=== PATIENT | female | born 1990 | race Two or more races ===

== ENCOUNTER 2018-03-16 20:23 | Inpatient (IN) | payer MEDICAID ==
[2018-03-16] MEDS ORDERED: Acetaminophen 325 MG Tab PO PRN (20:37)
[2018-03-16] MEDS ORDERED: oxyCODONE 5 MG Tab PO PRN (20:38)
[2018-03-16] MEDS ORDERED: Temazepam 15 MG Cap PO PRN (20:38)
[2018-03-16] MEDS: Nicotine 14 MG/24 Hr Patch TRDERM SCH (21:39)
--- NOTE | 2018-03-17 07:43 | PCM.HP ---
H&P History of Present Illness - General Date of Service: 03/17/18 Admit Problem/Dx: Admission Diagnosis/Problem Admission Diagnosis/Problem Anemia due to blood loss Source of Information: Patient, EMS Notes Reviewed History Limitations: Reports: No Limitations - History of Present Illness Initial Comments - Free Text/Narative: The patient is a 27-year-old lady who had presented to [facility] with a complaint of dizziness, lightheadedness and near-syncope. The patient had been admitted to acute hospitalization in December 2017 secondary to profound anemia. The patient was accepted directly from the clinic to hospitalization as she had a hemoglobin at that side of 3.3 g/dL. The patient's hematocrit was at 12.6%. All of the patient's other RBC indices were also low. The patient does have a history of iron deficiency anemia as well as menometrorrhagia and has said that she has been having bright red rectal bleeding for 3 days. She says that she hasn't been taking her medication for at least a month which had included ferrous sulfate and levothyroxin. The patient has had no other complaints at this time. She has denied any pain. No nausea or vomiting. No diarrhea. Onset of Symptoms: Reports: Gradual Duration of Symptoms: Reports: Week(s):, Chronic, Getting Worse Improves with: Reports: None Worsens with: Reports: None Associated Symptoms: Reports: Loss of Appetite - Related Data Allergies/Adverse Reactions: Allergies Allergy/AdvReac Type Severity Reaction Status Date / Time No Known Allergies Allergy Verified 01/03/18 19:22 Home Medications: Home Meds Ferrous Sulfate 325 mg PO TID #90 tablet 01/06/18 [Rx] Cholecalciferol (Vitamin D3) [Vitamin D] 50,000 unit PO ASDIRECTED 03/17/18 [ History] Cyanocobalamin (Vitamin B-12) [B-12] 1,000 mcg PO DAILY 03/17/18 [History] Levothyroxine 25 mcg PO ACBREAKFAST 03/17/18 [History] Past Medical History HEENT History: Reports: None Cardiovascular History: Reports: None Respiratory History: Reports: None Gastrointestinal History: Reports: None Genitourinary History: Reports: None 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: Other OB/BYN History: emergency c section on 2nd Musculoskeletal History: Reports: None Neurological History: Reports: None Psychiatric History: Reports: None Endocrine/Metabolic History: Reports: None Hematologic History: Reports: Anemia, Iron Deficiency Other Hematologic History: anemia 2nd to miscarriage Immunologic History: Reports: None Oncologic (Cancer) History: Reports: None Dermatologic History: Reports: None - Infectious Disease History Infectious Disease History: Reports: None - Past Surgical History Head Surgeries/Procedures: Reports: None Cardiovascular Surgical History: Reports: None Respiratory Surgical History: Reports: None GI Surgical History: Reports: None Female Surgical History: Reports: Section Neurological Surgical History: Reports: None Musculoskeletal Surgical History: Reports: None Dermatological Surgical History: Reports: None Social & Family History - Family History Family Medical History: Noncontributory - Tobacco Use Smoking Status *Q: Current Every Day Smoker Years of Tobacco use: 10 Packs/Tins Daily: 5 Used Tobacco, but Quit: No Second Hand Smoke Exposure: Yes - Caffeine Use Caffeine Use: Reports: None - Alcohol Use Days Per Week of Alcohol Use: 1 Number of Drinks Per Day: 6 Total Drinks Per Week: 6 - Recreational Drug Use Recreational Drug Use: No - Living Situation & Occupation Living situation: Reports: Single, with Family Occupation: Unemployed H&P Review of Systems - Review of Systems: Review Of Systems: See Below General: Reports: Malaise, Weakness, Fatigue HEENT: Reports: No Symptoms Pulmonary: Reports: No Symptoms Cardiovascular: Reports: Palpitations, Lightheadedness Gastrointestinal: Reports: Bloody Stool, Hematochezia Genitourinary: Reports: Abnormal Menses Musculoskeletal: Reports: No Symptoms Skin: Reports: Pallor Psychiatric: Reports: No Symptoms Neurological: Reports: No Symptoms Hematologic/Lymphatic: Reports: Anemia Immunologic: Reports: No Symptoms Exam - Exam Exam: See Below - Vital Signs Vital Signs: Last Vital Signs Temp 36.6 C 03/17/18 07:30 Pulse 88 03/17/18 07:30 Resp 16 03/17/18 07:30 BP 115/68 03/17/18 07:30 Pulse Ox 99 03/17/18 07:30 Weight: 66.587 kg - Exam Quality Assessment: Supplemental Oxygen General: Alert, Oriented, Cooperative HEENT: EACs Clear, EOMI, Hearing Intact, Pupils Equal, Pupils Reactive. No: Conjunctiva Clear (Pale), Mucosa Moist & [place] (Dry with oral pallor) Neck: Supple, Trachea Midline Lungs: Clear to Auscultation, Normal Respiratory Effort Cardiovascular: Regular Rhythm, Tachycardia GI/Abdominal Exam: Normal Bowel Sounds, Soft, Non-Tender, No Distention (Female) Exam: Deferred Rectal (Female) Exam: Deferred Back Exam: Normal Inspection, Full Range of Motion Extremities: Normal Inspection, No Pedal Edema Skin: Dry, Intact, Cool Neurological: Cranial Nerves Intact Neuro Extensive - Mental Status: Alert, Oriented x3 Neuro Extensive - Motor, Sensory, Reflexes: CN II-XII Intact Psychiatric: Alert, Normal Affect, Normal Mood - Patient Data Lab Results Last 24 hrs: Laboratory Results - last 24 hr 03/16/18 Range/Units 20:47 Blood Type O POSITIVE Antibody Screen NEGATIVE Crossmatch See Detail Result Diagrams: 03/17/18 08:45 03/17/18 08:45 - Problem List (1) Chronic blood loss anemia SNOMED Code(s): 988350824 ICD Code: D50.0 - IRON DEFICIENCY ANEMIA SECONDARY TO BLOOD LOSS (CHRONIC) Status: Chronic Priority: High Current Visit: Yes Problem Details: Profound, initial hemoglobin 3.3 g/dL (2) Menometrorrhagia SNOMED Code(s): 826380559 ICD Code: N92.1 - EXCESSIVE AND FREQUENT MENSTRUATION WITH IRREGULAR CYCLE Status: Acute Priority: High Current Visit: Yes (3) Hypothyroid SNOMED Code(s): 15168373 ICD Code: E03.9 - HYPOTHYROIDISM, UNSPECIFIED Status: Chronic Priority: High Current Visit: Yes Qualifiers: Hypothyroidism type: acquired Qualified Code(s): E03.9 - Hypothyroidism, unspecified (4) Non compliance w medication regimen SNOMED Code(s): 704303733 ICD Code: Z91.14 - PATIENT'S OTHER NONCOMPLIANCE WITH MEDICATION REGIMEN Status: Chronic Priority: High Current Visit: Yes (5) GI bleeding SNOMED Code(s): 10728786 ICD Code: K92.2 - GASTROINTESTINAL HEMORRHAGE, UNSPECIFIED Status: Acute Priority: High Current Visit: Yes Qualifiers: GI bleed type/associated pathology: anorectal hemorrhage Qualified Code(s) : K62.5 - Hemorrhage of anus and rectum Problem List Initiated/Reviewed/Updated: Yes Orders Last 24hrs: Active Orders 24 hr Category Date Time Status Admission Status [Patient Status] [ADT] Routine ADT 03/16/18 20:31 Active Oxygen Therapy Adult [Oxygen Therapy] [RC] ASDIRECTED Care 03/16/18 20:40 Active Telemetry Monitoring [Cardiac Monitoring] [RC] Q8H Care 03/16/18 20:34 Active Verify Patient Consent Obtain [RC] ASDIRECTED Care 03/16/18 20:30 Active Vital Signs [RC] Q4H Care 03/16/18 20:35 Active Regular Diet [DIET] Diet 03/17/18 Breakfast Active CBC WITH AUTO DIFF [HEME] AM Lab 03/17/18 05:11 Ordered CMP [COMPREHENSIVE METABOLIC PN,CMP] [CHEM] AM Lab 03/17/18 05:11 Ordered RED BLOOD CELLS LP [BBK] Routine Lab 03/16/18 20:47 Results TSH [CHEM] AM Lab 03/17/18 05:11 Ordered TYPE AND SCREEN [BBK] Routine Lab 03/16/18 20:47 Results Acetaminophen [Tylenol] Med 03/16/18 20:37 Active 650 mg PO Q6H PRN Nicotine [Habitrol] Med 03/16/18 20:45 Active 14 mg TRDERM DAILY Temazepam [Restoril] Med 03/16/18 20:38 Active 15 mg PO BEDTIME PRN oxyCODONE Med 03/16/18 20:38 Active 5 mg PO Q4H PRN Transfuse Red Blood Cells [COMM] Routine Oth 03/16/18 20:28 Ordered Medication Orders Acetaminophen (Tylenol) 650 mg PO Q6H PRN PRN Reason: Pain Nicotine (Habitrol) 14 mg TRDERM DAILY JAZMINE Last Admin: 03/16/18 21:39 Dose: 14 mg Oxycodone HCl (Oxycodone) 5 mg PO Q4H PRN PRN Reason: moderate pain Temazepam (Restoril) 15 mg PO BEDTIME PRN PRN Reason: Sleep Assessment/Plan Comment:: The patient is a 27-year-old lady who has a history of noncompliance with her medications. This is a second time within the past 3 months that she has been hospitalized for profound anemia. Her hemoglobin upon presentation for outside source was at 3.3 g/dL. 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 I have reviewed all the presenting documentation. The patient has also been at this time transfuse with 3 units of packed red blood cells and her hemoglobin has improved to 7.8 g/dL. She has 2 more units of packed red blood cells currently pending. Because of the patient's rather profound anemia and her noncompliance I've also ordered due to transfusion of 200 mg of iron sucrose. The patient will need to have close follow-up with her primary care physician. She has been encouraged to ambulate. Also I have consulted surgeon with regards to her report of bloody red rectal bleeding although previously she did not have any evidence of this. The patient should be appropriate for discharge in 1-2 days.
[2018-03-17] MEDS ORDERED: Ondansetron 4 MG Tab.DIS PO PRN (08:49)
[2018-03-17] MEDS ORDERED: Docusate Sodium 100 MG Cap PO PRN (08:49)
[2018-03-17] MEDS ORDERED: Cholecalciferol (Vitamin D3) [Vitamin D3] 50,000 UNIT PO SCH (09:00)
[2018-03-17] MEDS: Cyanocobalamin (Vitamin B12) 500 MCG Tab PO SCH (09:09)
[2018-03-17] MEDS: Nicotine 14 MG/24 Hr Patch TRDERM SCH (09:09)
[2018-03-17 09:25] LABS: CHLORIDE,CL 106 mmol/L (98-107); SODIUM,NA 138 mmol/L (136-145)
--- NOTE | 2018-03-17 15:45 | PCM.CONS ---
H&P History of Present Illness - General Date of Service: 03/17/18 Admit Problem/Dx: Admission Diagnosis/Problem Admission Diagnosis/Problem Anemia due to blood loss Source of Information: Patient History Limitations: Reports: No Limitations - History of Present Illness Initial Comments - Free Text/Narative: Patient is a 27 year old female who presents with severe anemia. She was seen last fall with the same issue. Her FOBT was negative. She failed to follow up with me or a director veterinary afterwards. She is currently on her menses and started feeling weak and dizzy. She presented to an OSH with a hgb of 3 again. She was transfered here. Overnight she received 4 units of blood and her hemoglobin syd appropriately. She is currently getting more blood. She denies any hematochezia or melena. She states that her periods are very heavy. She has been on BC before but it has failed to stop her periods. - Related Data Allergies/Adverse Reactions: Allergies Allergy/AdvReac Type Severity Reaction Status Date / Time No Known Allergies Allergy Verified 01/03/18 19:22 Home Medications: Home Meds Ferrous Sulfate 325 mg PO TID #90 tablet 01/06/18 [Rx] Cholecalciferol (Vitamin D3) [Vitamin D] 50,000 unit PO ASDIRECTED 03/17/18 [ History] Cyanocobalamin (Vitamin B-12) [B-12] 1,000 mcg PO DAILY 03/17/18 [History] Levothyroxine 25 mcg PO ACBREAKFAST 03/17/18 [History] Past Medical History HEENT History: Reports: None Cardiovascular History: Reports: None Respiratory History: Reports: None Gastrointestinal History: Reports: None Genitourinary History: Reports: None 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 OB/BYN History: emergency c section on 2nd Musculoskeletal History: Reports: None Neurological History: Reports: None Psychiatric History: Reports: None Endocrine/Metabolic History: Reports: None Hematologic History: Reports: Anemia, Iron Deficiency Other Hematologic History: anemia 2nd to miscarriage Immunologic History: Reports: None Oncologic (Cancer) History: Reports: None Dermatologic History: Reports: None - Infectious Disease History Infectious Disease History: Reports: None - Past Surgical History Head Surgeries/Procedures: Reports: None Cardiovascular Surgical History: Reports: None Respiratory Surgical History: Reports: None GI Surgical History: Reports: None Female Surgical History: Reports: Section Neurological Surgical History: Reports: None Musculoskeletal Surgical History: Reports: None Dermatological Surgical History: Reports: None Social & Family History - Family History Family Medical History: Noncontributory - Tobacco Use Smoking Status *Q: Current Every Day Smoker Years of Tobacco use: 10 Packs/Tins Daily: 5 Used Tobacco, but Quit: No Second Hand Smoke Exposure: Yes - Caffeine Use Caffeine Use: Reports: None - Alcohol Use Days Per Week of Alcohol Use: 1 Number of Drinks Per Day: 6 Total Drinks Per Week: 6 - Recreational Drug Use Recreational Drug Use: No - Living Situation & Occupation Living situation: Reports: Single, with Family Occupation: Unemployed H&P Review of Systems - Review of Systems: Review Of Systems: ROS reveals no pertinent complaints other than HPI. Exam - Exam Exam: See Below - Vital Signs Vital Signs: Last Vital Signs Temp 36.5 C 03/17/18 14:39 Pulse 84 03/17/18 14:39 Resp 16 03/17/18 14:39 BP 110/63 03/17/18 14:39 Pulse Ox 99 03/17/18 14:39 Weight: 66.587 kg - Exam General: Alert, Oriented HEENT: Conjunctiva Clear, Mucosa Moist & [place] Lungs: Clear to Auscultation, Normal Respiratory Effort Cardiovascular: Regular Rate, Regular Rhythm GI/Abdominal Exam: Soft, Non-Tender, No Distention, No Mass Rectal (Female) Exam: Normal Exam, Normal Rectal Tone, Heme - Stool Back Exam: Normal Inspection, Full Range of Motion Extremities: Normal Inspection, Normal Range of Motion - Patient Data Lab Results Last 24 hrs: Laboratory Results - last 24 hr 03/16/18 03/17/18 03/17/18 Range/Units 20:47 08:45 08:45 WBC 8.06 (4.0-11.0) K/uL RBC 3.23 L (4.30-5.90) M/uL Hgb 7.8 L (12.0-16.0) g/dL Hct 24.7 L (36.0-46.0) % MCV 76.5 L (80.0-98.0) fL MCH 24.1 L (27.0-32.0) pg MCHC 31.6 (31.0-37.0) g/dL RDW Std Deviation 52.6 (28.0-62.0) fl RDW Coeff of Aniyah 19 H (11.0-15.0) % Plt Count 239 (150-400) K/uL MPV 9.50 (7.40-12.00) fL Neut % (Auto) 77.2 (48.0-80.0) % Lymph % (Auto) 10.4 L (16.0-40.0) % Rich % (Auto) 7.1 (0.0-15.0) % Eos % (Auto) 5.2 (0.0-7.0) % Baso % (Auto) 0.1 (0.0-1.5) % Neut # (Auto) 6.2 H (1.4-5.7) K/uL Lymph # (Auto) 0.8 (0.6-2.4) K/uL Rich # (Auto) 0.6 (0.0-0.8) K/uL Eos # (Auto) 0.4 (0.0-0.7) K/uL Baso # (Auto) 0.0 (0.0-0.1) K/uL Nucleated RBC % 1.0 /100WBC Nucleated RBCs # 0 K/uL Sodium 138 (136-145) mmol/L Potassium 3.3 L (3.5-5.1) mmol/L Chloride 106 (98-107) mmol/L Carbon Dioxide 22.3 (21.0-32.0) mmol/L BUN 7 (7.0-18.0) mg/dL Creatinine 0.5 L (0.6-1.0) mg/dL Est Cr Clr Drug Dosing 148.53 mL/min Estimated GFR (MDRD) > 60.0 ml/min Glucose 95 (74-106) mg/dL Calcium 8.6 (8.5-10.1) mg/dL Total Bilirubin 4.1 H (0.2-1.0) mg/dL AST 38 H (15-37) IU/L ALT 48 (14-63) IU/L Alkaline Phosphatase 104 (46-116) U/L Total Protein 6.7 (6.4-8.2) g/dL Albumin 3.2 L (3.4-5.0) g/dL Globulin 3.5 (2.6-4.0) g/dL Albumin/Globulin Ratio 0.9 (0.9-1.6) TSH 3rd Generation 2.43 (0.36-3.74) uIU/mL Blood Type O POSITIVE Antibody Screen NEGATIVE Crossmatch See Detail Result Diagrams: 03/17/18 08:45 03/17/18 08:45 Consult PN Assessment/Plan (1) Menometrorrhagia SNOMED Code(s): 035971626 Code(s): N92.1 - EXCESSIVE AND FREQUENT MENSTRUATION WITH IRREGULAR CYCLE Priority: High Current Visit: Yes (2) Chronic blood loss anemia SNOMED Code(s): 853272951 Code(s): D50.0 - IRON DEFICIENCY ANEMIA SECONDARY TO BLOOD LOSS (CHRONIC) Priority: High Current Visit: Yes Comment: Profound, initial hemoglobin 3.3 g/dL Problem List Initiated/Reviewed/Updated: Yes Plan: The patient's story sounds consistent with a gynecologic issue as the cause of her anemia and less likely from a GI bleed. If her FOBT is negative then she should follow up with a director veterinary for management first. If her FOBT comes back positive will consider a scope for her while she is inpatient since she has failed to follow up in the past.
[2018-03-18] MEDS ORDERED: Levothyroxine 25 MCG Tab PO SCH (07:30)
[2018-03-18] MEDS: Nicotine 14 MG/24 Hr Patch TRDERM SCH (08:57)
[2018-03-18] MEDS: Cyanocobalamin (Vitamin B12) 500 MCG Tab PO SCH (08:59)
[2018-03-18] MEDS ORDERED: Cholecalciferol (Vitamin D3) [Vitamin D3] 50,000 UNIT PO SCH (09:15)
--- NOTE | 2018-03-18 12:14 | PCM.DCSUM1 ---
Discharge Summary - Hospital Course Brief History: The patient is a 27-year-old lady who had presented to [facility] with a complaint of dizziness, lightheadedness and near-syncope. The patient had been admitted to acute hospitalization in December 2017 secondary to profound anemia. The patient was accepted directly from the clinic to hospitalization as she had a hemoglobin at that side of 3.3 g /dL. The patient's hematocrit was at 12.6%. All of the patient's other RBC indices were also low. The patient does have a history of iron deficiency anemia as well as menometrorrhagia and has said that she has been having bright red rectal bleeding for 3 days. She says that she hasn't been taking her medication for at least a month which had included ferrous sulfate and levothyroxine. The patient has had no other complaints at this time. She has denied any pain. No nausea or vomiting. No diarrhea. Diagnosis: Stroke: No - Discharge Data Discharge Date: 03/18/18 Discharge Disposition: Home, Self-Care 01 Condition: Good - Patient Instructions Diet: Regular Diet as Tolerated Activity: As Tolerated Showering/Bathing: May Shower Notify Provider of: Fever, Increased Pain, Swelling and Redness, Drainage, Nausea and/or Vomiting - Discharge Plan *PRESCRIPTION DRUG MONITORING PROGRAM REVIEWED*: Not Applicable *COPY OF PRESCRIPTION DRUG MONITORING REPORT IN PATIENT [place]IDIA: Not Applicable Prescriptions/Med Rec: Iron Ps Cmplx/Vit B12/Fa [Poly-Iron 150 Forte] 1 each PO BID #60 capsule Home Medications: Home Meds Cholecalciferol (Vitamin D3) [Vitamin D3] 50,000 unit PO ASDIRECTED 03/17/18 [ History] Cyanocobalamin (Vitamin B-12) [B-12] 1,000 mcg PO DAILY 03/17/18 [History] Levothyroxine 25 mcg PO ACBREAKFAST 03/17/18 [History] Iron Ps Cmplx/Vit B12/Fa [Poly-Iron 150 Forte] 1 each PO BID #60 capsule [Rx] Oxygen Therapy Mode: Room Air Patient Handouts: Polysaccharide-Iron Complex tablets or capsules, Gastrointestinal Bleeding, [id number] Referrals: Caio Cochran MD [Physician] - 03/27/18 10:45 am Gita Falcon MD [Physician] - 03/27/18 1:30 pm - Discharge Summary/Plan Comment DC Time >30 min.: No Discharge Summary/Plan Comment: Discharge Diagnoses: Anemia requiring transfusing Menorrhagia Hypothyroidism Non compliance with medical regimen [place] was admitted and transfused with total of 5 units PRBCs. FOBT was collected and revealed positive. Dr Falcon, General surgery, consulted due to this. Please see her report. She offered patient endoscopy and she declined would like to obtain this as outpatient. 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 He recommended follow up as outpatient and to also see Hematology for work up for bleeding disorders as well. She reports she was on Depo shot, which worked for a short period of time, then she started bleeding more and soaks 1 pad in 1-2 hours. She will be encouraged to continue Iron supplementation, which she reports she stopped taking 1 month ago. She is encouraged to follow up as scheduled so she can e further evaluated. She will have follow up arranged with Dr Falcon, Dr Cochran and Hematology. She is to return to the ED or clinic if concerns should arise. - General Info Date of Service: 03/18/18 Admission Dx/Problem (Free Text: Admission Diagnosis/Problem Admission Diagnosis/Problem Anemia due to blood loss Subjective Update: Reports she is feeling much better today. No lightheadedness or dizziness. No pain. Menses have stopped. No further rectal bleeding. Functional Status: Reports: Pain Controlled, Tolerating Diet, Ambulating, Urinating - Review of Systems General: Reports: No Symptoms. Denies: Weakness, Fatigue, Malaise HEENT: Reports: No Symptoms. Denies: Headaches, Sore Throat, Visual Changes Pulmonary: Reports: No Symptoms. Denies: Shortness of Breath Cardiovascular: Reports: No Symptoms. Denies: Chest Pain, Palpitations Gastrointestinal: Reports: No Symptoms. Denies: Abdominal Pain, Nausea, Vomiting Genitourinary: Reports: No Symptoms. Denies: Dysuria, Frequency, Burning Musculoskeletal: Reports: No Symptoms Skin: Reports: No Symptoms Neurological: Reports: No Symptoms Psychiatric: Reports: No Symptoms - Patient Data Vitals - Most Recent: Last Vital Signs Temp 96.5 F 03/18/18 12:00 Pulse 81 03/18/18 12:00 Resp 16 03/18/18 12:00 BP 124/69 03/18/18 12:00 Pulse Ox 99 03/18/18 12:00 Weight - Most Recent: 66.587 kg I&O - Last 24 hours: Intake & Output 03/17/18 03/18/18 03/18/18 22:59 06:59 14:59 Intake Total 1296 240 Output Total 350 650 Balance 946 -410 Lab Results - Last 24 hrs: Laboratory Results - last 24 hr 03/16/18 03/17/18 03/18/18 Range/Units 20:47 20:38 06:10 WBC 8.91 (4.0-11.0) K/uL RBC 4.02 L (4.30-5.90) M/uL Hgb 9.5 L 10.4 L (12.0-16.0) g/dL Hct 29.2 L 31.9 L (36.0-46.0) % MCV 79.4 L (80.0-98.0) fL MCH 25.9 L (27.0-32.0) pg MCHC 32.6 (31.0-37.0) g/dL RDW Std Deviation 49.0 (28.0-62.0) fl RDW Coeff of Aniyah 18 H (11.0-15.0) % Plt Count 247 (150-400) K/uL MPV 10.80 (7.40-12.00) fL Neut % (Auto) 70.1 (48.0-80.0) % Lymph % (Auto) 16.6 (16.0-40.0) % [place] % (Auto) 7.6 (0.0-15.0) % Eos % (Auto) 5.5 (0.0-7.0) % Baso % (Auto) 0.2 (0.0-1.5) % Neut # (Auto) 6.2 H (1.4-5.7) K/uL Lymph # (Auto) 1.5 (0.6-2.4) K/uL [place] # (Auto) 0.7 (0.0-0.8) K/uL Eos # (Auto) 0.5 (0.0-0.7) K/uL Baso # (Auto) 0.0 (0.0-0.1) K/uL Blood Type O POSITIVE Antibody Screen NEGATIVE Crossmatch See Detail [facility]AS[facility] Results - Last 24 hrs: Microbiology 03/17/18 15:30 Stool Occult Blood (CEASAR) - Final Stool / Feces POSITIVE OCCULT BLOOD Med Orders - Current: Current Medications Acetaminophen (Tylenol) 650 mg PO Q6H PRN PRN Reason: Pain Cyanocobalamin (Vitamin B12) 1,000 mcg PO DAILY [facility] Last Admin: 03/18/18 08:59 Dose: 1,000 mcg Docusate Sodium (Colace) 100 mg PO BID PRN PRN Reason: Constipation Levothyroxine Sodium (Levothyroxine) 25 mcg PO ACBREAKFAST [facility] Last Admin: 03/18/18 06:40 Dose: 25 mcg Nicotine (Habitrol) 14 mg TRDERM DAILY [facility] Last Admin: 03/18/18 08:57 Dose: Not Given Ondansetron HCl (Zofran Odt) 4 mg PO Q4H PRN PRN Reason: nausea, able to take PO Oxycodone HCl (Oxycodone) 5 mg PO Q4H PRN PRN Reason: moderate pain Cholecalciferol ( Vitamin D3) [Vitamin D3] 50,000 Unit 50,000 each PO MoWeFr [facility] Last Admin: 03/18/18 08:58 Dose: Not Given Temazepam (Restoril) 15 mg PO BEDTIME PRN PRN Reason: Sleep Discontinued Medications Cholecalciferol ( Vitamin D3) [Vitamin D3] 50,000 Unit 50,000 each PO ASDIRECTED [facility] - Exam General: Reports: Alert, Oriented, Cooperative, No Acute Distress Lungs: Reports: Clear to Auscultation, Normal Respiratory Effort Cardiovascular: Reports: Regular Rate, Regular Rhythm GI/Abdominal Exam: Normal Bowel Sounds, Soft, Non-Tender Extremities: Normal Inspection, Normal Range of Motion, Non-Tender Neurological: Reports: No New Focal Deficit Psy/Mental Status: Reports: Alert, Normal Affect, Normal Mood *Q Meaningful Use (DIS) - VTE *Q VTE Mechanical Contraindications *Q: At Risk for Falls VTE Pharmacological Contraindications *Q: Patient has Severe Anemia
--- NOTE | 2018-03-19 15:15 | PCM.SN ---
- Free Text/Narrative Note: I saw this patient on Sunday03/18/18. Given her positive FOBT, I recommended a diagnostic EGD and colonoscopy. The patient declined and states that she wants to do one as an outpatient. She understands that we do not have an exact source of her bleed and this could help up determine where it is coming from. She still declined. She will follow up in my clinic in 1-2 weeks to schedule these procedures as an outpatient.
== END 2018-03-18 14:20 | disposition home or self-care (01) | DRG 379 ==
LOC: MW.MS 20:23
PROVIDERS: ADMIT Internal Medicine; ATTEND Internal Medicine
PROC: 30233N1 Transfusion of Nonautologous Red Blood Cells into Peripheral Vein, Percutaneous Approach (ICD-10-PCS; principal; 2018-03-16)
DX: K62.5 Hemorrhage of anus and rectum (principal); T45.4X6A Underdosing of iron and its compounds, initial encounter; T38.1X6A Underdosing of thyroid hormones and substitutes, initial encounter; Z91.128 Patient's intentional underdosing of medication regimen for other reason; N92.1 Excessive and frequent menstruation with irregular cycle; D50.0 Iron deficiency anemia secondary to blood loss (chronic); Z98.891 History of uterine scar from previous surgery; F17.210 Nicotine dependence, cigarettes, uncomplicated; E03.9 Hypothyroidism, unspecified
CPT/HCPCS: 36415; 36430; 80053; 82272; 84443; 85014; 85018; 85025; 86850; 86900; 86901; 86920; 86921; 86922; A9270-GY; P9016

== ENCOUNTER 2018-09-06 22:36 | Emergency (ER) | payer MEDICAID ==
[2018-09-06] MEDS ORDERED: Sodium Chloride 0.9% 1,000 ML IV ONE (22:42)
--- NOTE | 2018-09-06 22:42 | EDM.PDOC ---
ED HPI GENERAL MEDICAL PROBLEM - General Stated Complaint: PT HAS LOW BLOOD Time Seen by Provider: 09/06/18 22:39 Source of Information: Reports: Patient History Limitations: Reports: No Limitations - History of Present Illness INITIAL COMMENTS - FREE TEXT/NARRATIVE: HISTORY AND PHYSICAL: History of present illness: Patient is a 28-year-old female who presents to the emergency room with complaints of headache, dizziness and bloody stools. Patient has a long- standing history of anemia which has required blood transfusions. States her anemia started last year secondary to a miscarriage. Since then she has been admitted several times this past year for blood transfusions and unspecified GI bleed. Patient reports she has not found a cause behind why she continues to have anemia and bloody stools. States that she had an IUD placed a few months ago to help decrease frequency of her menstrual periods, but over the past one month she has had light spotting at least daily. She continues to have blood in her stools which she describes as bright in color. Believes somebody told her it was due to hemorrhoids but she is unconvinced that her GI bleed has been properly addressed. Patient denies any fever, chills, change in vision, syncope or near syncope. Denies any chest pain, back pain, shortness of breath or cough. Denies any abdominal pain, nausea, vomiting, diarrhea, constipation or dysuria. Patient has been eating and drinking appropriately. Past medical history of iron deficiency anemia, GI bleed, hypothyroidism Review of systems: As per history of present illness and below otherwise all systems reviewed and negative. Past medical history: As per history of present illness and as reviewed below otherwise noncontributory. Surgical history: As per history of present illness and as reviewed below otherwise noncontributory. Social history: See social history for further information Family history: As per history of present illness and as reviewed below otherwise noncontributory. Physical exam: General: Well-developed and well-nourished 28-year-old female. Alert and oriented. HEENT: Atraumatic, normocephalic, pupils equal and reactive bilaterally, bilateral conjunctival pallor, negative scleral icterus, mucous membranes moist , trachea midline. No drooling or trismus noted. No meningeal signs. No hot potato voice noted. Lungs: Clear to auscultation, breath sounds equal bilaterally, chest nontender. Heart: S1S2, regular rate and rhythm without overt murmur Abdomen: Soft, nondistended, nontender. Negative for masses. Negative for costovertebral tenderness. Pelvis: Stable nontender. Rectal: No obvious external or internal hemorrhoids are noted. Positive Hemoccult stool, yanet blood noted mixed in stool. Good rectal tone Skin: Profoundly pale, intact, warm, dry. No lesions or rashes noted. Extremities: Atraumatic, moves all extremities per self without difficulty or deficits. Neurovascular unremarkable. Neuro: Awake, alert, oriented. Cranial nerves II through XII unremarkable. Cerebellum unremarkable. Motor and sensory unremarkable throughout. Exam nonfocal. Notes: Dr. Rankin, general surgeon in class special education teacher was involved in this case. He is aware of the patient needs for further care and management and is agreeable to plan of care. Patient is going to require blood products and admission for continued monitoring. Her facility is currently on diversion and does not have any beds available. Patient is aware of this. We'll have to transfer her to [facility]. Dr. Oakley at [facility] in [place] was consulted, he is agreeable to accepting this patient. She'll be transferred via [facility] flight crew. Diagnostics: CBC, CMP, EKG, Orthostatic Vital Signs, UA, HCGU Therapeutics: IV fluids, 2 units PRBCs, Fresh Frozen Plasma Impression: Symptomatic Anemia Menometrorrhagia GI bleed Plan: Transfer to [facility] to Dr Oakley Definitive disposition and diagnosis as appropriate pending reevaluation and review of above. Duration: Week(s):, Chronic (Acute on Chronic ) head Pain Score (Numeric/FACES): 8 - Related Data Allergies Allergy/AdvReac Type Severity Reaction Status Date / Time No Known Allergies Allergy Verified 09/06/18 22:46 Home Meds: Home Meds . 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 TALENT ACQUISITION ASSISTANT History: emergency c section on 2nd Musculoskeletal History: Reports: None Neurological History: Reports: None Psychiatric History: Reports: None Endocrine/Metabolic History: Reports: None Hematologic History: Reports: Anemia, Iron Deficiency Other Hematologic History: anemia 2nd to miscarriage Immunologic History: Reports: None Oncologic (Cancer) History: Reports: None Dermatologic History: Reports: None - Infectious Disease History Infectious Disease History: Reports: None - Past Surgical History Head Surgeries/Procedures: Reports: None Cardiovascular Surgical History: Reports: None Respiratory Surgical History: Reports: None GI Surgical History: Reports: None Female Surgical History: Reports: Section Neurological Surgical History: Reports: None Musculoskeletal Surgical History: Reports: None Dermatological Surgical History: Reports: None Social & Family History - Family History Family Medical History: Noncontributory - Caffeine Use Caffeine Use: Reports: None - Living Situation & Occupation Living situation: Reports: Single, with Family Occupation: Unemployed ED ROS GENERAL - Review of Systems Review Of Systems: ROS reveals no pertinent complaints other than HPI. ED EXAM, GENERAL - Physical Exam Exam: See Below (See dictation) Course - Vital Signs Last Recorded V/S: Last Vital Signs Temp 97.1 F 09/06/18 22:36 Pulse 124 H 09/06/18 22:36 Resp 18 09/06/18 22:36 BP 129/52 L 09/06/18 22:36 Pulse Ox 96 09/06/18 22:36 - Orders/Labs/Meds Orders: Active Orders 24 hr Category Date Time Status EKG Documentation Completion [RC] STAT Care 09/06/18 22:42 Active Orthostatic Vital Signs [RC] ASDIRECTED Care 09/06/18 22:42 Active COMPREHENSIVE METABOLIC PN,CMP [CHEM] Stat Lab 09/06/18 22:50 Received FRESH FROZEN PLASMA [BBK] Stat Lab 09/06/18 23:17 Ordered HCG QUALITATIVE,URINE [URCHEM] Stat Lab 09/06/18 22:42 Ordered INR,PT,PROTHROMBIN TIME [COAG] Stat Lab 09/06/18 23:09 Ordered PTT,PARTIAL THROMBOPLSTIN TIME [COAG] Routine Lab 09/06/18 23:17 Ordered RED BLOOD CELLS LP [BBK] Stat Lab 09/06/18 23:01 Ordered TYPE AND SCREEN [BBK] Stat Lab 09/06/18 22:50 Received UA RFX CEASAR AND CULT IF INDIC [URIN] Stat Lab 09/06/18 22:42 Ordered Sodium Chloride 0.9% [Normal Saline] 1,000 ml Med 09/06/18 22:42 Active IV STAT Transfuse Red Blood Cells [COMM] Stat Oth 09/06/18 23:01 Ordered Medication Orders Sodium Chloride (Normal Saline) 1,000 mls @ 999 mls/hr IV STAT ONE Stop: 09/06/18 23:42 Labs: Laboratory Tests 09/06/18 Range/Units 22:50 WBC 6.74 (4.0-11.0) K/uL RBC 1.75 L (4.30-5.90) M/uL Hgb 2.7 L* (12.0-16.0) g/dL Hct 11.5 L (36.0-46.0) % MCV 65.7 L (80.0-98.0) fL MCH 15.4 L (27.0-32.0) pg MCHC 23.5 L (31.0-37.0) g/dL RDW Std Deviation 49.9 (28.0-62.0) fl RDW Coeff of Aniyah 21 H (11.0-15.0) % Plt Count 354 (150-400) K/uL MPV 9.00 (7.40-12.00) fL Neut % (Auto) 66.6 (48.0-80.0) % Lymph % (Auto) 23.7 (16.0-40.0) % [place] % (Auto) 6.5 (0.0-15.0) % Eos % (Auto) 2.8 (0.0-7.0) % Baso % (Auto) 0.4 (0.0-1.5) % Neut # (Auto) 4.5 (1.4-5.7) K/uL Lymph # (Auto) 1.6 (0.6-2.4) K/uL [place] # (Auto) 0.4 (0.0-0.8) K/uL Eos # (Auto) 0.2 (0.0-0.7) K/uL Baso # (Auto) 0.0 (0.0-0.1) K/uL Nucleated RBC % 1.6 /100WBC Nucleated RBCs # 0 K/uL Meds: Medications Generic Name Dose Route Start Last Admin Trade Name Freq PRN Reason Stop Dose Admin Sodium Chloride 1,000 mls @ 999 mls/hr 09/06/18 22:42 Normal Saline IV 09/06/18 23:42 STAT ONE Discontinued Medications Generic Name Dose Route Start Last Admin Trade Name Freq PRN Reason Stop Dose Admin Ketorolac Tromethamine 30 mg 09/06/18 22:47 Toradol IVPUSH 09/06/18 22:48 ONETIME ONE Departure - Departure Time of Disposition: 23:21 Disposition: DC/Tfer to Acute Hospital 02 Clinical Impression: Menometrorrhagia Anemia Qualifiers: Anemia type: unspecified type Qualified Code(s): D64.9 - Anemia, unspecified GI bleeding Qualifiers: GI bleed type/associated pathology: anorectal hemorrhage Qualified Code(s): K62.5 - Hemorrhage of anus and rectum - Discharge Information Referrals: PCP,None [Primary Care Provider] - - My Orders Last 24 Hours: My Active Orders 09/06/18 22:42 EKG Documentation Completion [RC] STAT Orthostatic Vital Signs [RC] ASDIRECTED HCG QUALITATIVE,URINE [URCHEM] Stat UA RFX CEASAR AND CULT IF INDIC [URIN] Stat Sodium Chloride 0.9% [Normal Saline] 1,000 ml IV STAT 09/06/18 22:50 COMPREHENSIVE METABOLIC PN,CMP [CHEM] Stat TYPE AND SCREEN [BBK] Stat 09/06/18 23:01 RED BLOOD CELLS LP [BBK] Stat Transfuse Red Blood Cells [COMM] Stat 09/06/18 23:09 INR,PT,PROTHROMBIN TIME [COAG] Stat 09/06/18 23:17 FRESH FROZEN PLASMA [BBK] Stat PTT,PARTIAL THROMBOPLSTIN TIME [COAG] Routine - Assessment/Plan Last 24 Hours: My Active Orders 09/06/18 22:42 EKG Documentation Completion [RC] STAT Orthostatic Vital Signs [RC] ASDIRECTED HCG QUALITATIVE,URINE [URCHEM] Stat UA RFX CEASAR AND CULT IF INDIC [URIN] Stat Sodium Chloride 0.9% [Normal Saline] 1,000 ml IV STAT 09/06/18 22:50 COMPREHENSIVE METABOLIC PN,CMP [CHEM] Stat TYPE AND SCREEN [BBK] Stat 09/06/18 23:01 RED BLOOD CELLS LP [BBK] Stat Transfuse Red Blood Cells [COMM] Stat 09/06/18 23:09 INR,PT,PROTHROMBIN TIME [COAG] Stat 09/06/18 23:17 FRESH FROZEN PLASMA [BBK] Stat PTT,PARTIAL THROMBOPLSTIN TIME [COAG] Routine
[2018-09-06] MEDS ORDERED: Ketorolac 30 MG/ML SDV IVPUSH ONE (22:47)
[2018-09-06 23:23] LABS: BLOOD UREA NITROGEN,BUN 8 mg/dL (7.0-18.0); CARBON DIOXIDE,CO2 20.2 mmol/L (21.0-32.0); CHLORIDE,CL 106 mmol/L (98-107); GLUCOSE RANDOM 131 mg/dL (74-106); POTASSIUM,K 3.4 mmol/L (3.5-5.1); SODIUM,NA 140 mmol/L (136-145)
== END 2018-09-07 00:15 ==
LOC: MW.ED 22:36
DX: N92.1 Excessive and frequent menstruation with irregular cycle (principal); K62.5 Hemorrhage of anus and rectum; D64.9 Anemia, unspecified
CPT/HCPCS: 36415; 36430; 80053; 85025; 85610; 85730; 86850; 86900; 86901; 86920; 86921; 86922; 93005; 96360; 99285; J7040; P9016; P9017; 99284

== ENCOUNTER 2019-01-20 21:14 | Inpatient (IN) | payer MEDICAID ==
[2019-01-20] MEDS ORDERED: Sodium Chloride 0.9% 2.5 ML Syringe FLUSH PRN (21:30)
[2019-01-20] MEDS ORDERED: Sodium Chloride 0.9% 10 ML Syringe FLUSH PRN (21:30)
[2019-01-20] MEDS ORDERED: Ondansetron 4 MG/2 ML SDV IVPUSH ONE (21:35)
[2019-01-20] MEDS ORDERED: Ketorolac 30 MG/ML SDV IVPUSH ONE (21:35)
[2019-01-20] MEDS ORDERED: Sodium Chloride 0.9% 1,000 ML IV ONE ×2 (21:35→22:25)
--- NOTE | 2019-01-20 21:38 | EDM.PDOC ---
<Petra Marinelli - Last Filed: 01/20/19 21:56> ED HPI GENERAL MEDICAL PROBLEM - General Chief Complaint: Genitourinary Problem Stated Complaint: LOWER BACK PAIN AND HURTS WHEN URINATE Time Seen by Provider: 01/20/19 21:23 Source of Information: Reports: Patient History Limitations: Reports: No Limitations - History of Present Illness INITIAL COMMENTS - FREE TEXT/NARRATIVE: HISTORY AND PHYSICAL: History of present illness: Patient is a 28-year-old female who presents to the ED today with concern of right-sided flank pain and burning with urination since yesterday. Patient states she also started feeling feverish and cold last night. Patient states she has not taken anything for her symptoms. Patient states she has a history of anemia but denies any other health history. Patient denies any other symptoms or concerns. Patient denies chest pain, shortness of breath, or cough. Denies headache, neck stiff ness, change in vision, syncope, or near syncope. Denies nausea, vomiting , diarrhea, constipation, or dysuria. Has not noted any blood in urine or stool. Patient has been eating and drinking appropriately. Review of systems: As per history of present illness and below otherwise all systems reviewed and negative. Past medical history: As per history of present illness and as reviewed below otherwise noncontributory. Surgical history: As per history of present illness and as reviewed below otherwise noncontributory. Social history: See social history for further information Family history: As per history of present illness and as reviewed below otherwise noncontributory. Physical exam: General: Patient is alert, oriented, and in no acute distress. Patient laying comfortably on exam table but shivering. HEENT: Atraumatic, normocephalic, pupils equal and reactive bilaterally, negative for conjunctival pallor or scleral icterus, mucous membranes moist, TMs normal bilaterally, throat clear, neck supple, nontender, trachea midline. No drooling or trismus noted. No meningeal signs. No hot potato voice noted. Lungs: Clear to auscultation, breath sounds equal bilaterally, chest nontender. Heart: S1S2, regular rate and rhythm without overt murmur Abdomen: Soft, nondistended, nontender. Negative for masses or hepatosplenomegaly. Positive for costovertebral tenderness of the right. Pelvis: Stable nontender. Genitourinary: Deferred. Rectal: Deferred. Skin: Intact, warm, dry. No lesions or rashes noted. Extremities: Atraumatic, negative for cords or calf pain. Neurovascular unremarkable. Neuro: Awake, alert, oriented. Cranial nerves II through XII unremarkable. Cerebellum unremarkable. Motor and sensory unremarkable throughout. Exam nonfocal. Notes: Dr. Montgomery has assumed care of patient and will follow remaining diagnostics and disposition for patient. Diagnostics: CBC, CMP, UA, urine culture, urine hCG, lipase, lactate, blood cultures x2, influenza Therapeutics: Saline, Toradol, Zofran, Rocephin Prescription: Impression: Urinary Tract Infection Plan: Definitive disposition and diagnosis as appropriate pending reevaluation and review of above. right flank Pain Score (Numeric/FACES): 8 - Related Data Allergies Allergy/AdvReac Type Severity Reaction Status Date / Time No Known Allergies Allergy Verified 01/20/19 21:27 Home Meds: Home Meds . 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 PONY ROLL FINISHER History: emergency c section on 2nd Musculoskeletal History: Reports: None Neurological History: Reports: None Psychiatric History: Reports: None Endocrine/Metabolic History: Reports: None Hematologic History: Reports: Anemia, Iron Deficiency Other Hematologic History: anemia 2nd to miscarriage Immunologic History: Reports: None Oncologic (Cancer) History: Reports: None Dermatologic History: Reports: None - Infectious Disease History Infectious Disease History: Reports: None - Past Surgical History Head Surgeries/Procedures: Reports: None Cardiovascular Surgical History: Reports: None Respiratory Surgical History: Reports: None GI Surgical History: Reports: None Female Surgical History: Reports: Section Neurological Surgical History: Reports: None Musculoskeletal Surgical History: Reports: None Dermatological Surgical History: Reports: None Social & Family History - Family History Family Medical History: Noncontributory - Tobacco Use Smoking Status *Q: Current Every Day Smoker Years of Tobacco use: 16 Packs/Tins Daily: 1 - Caffeine Use Caffeine Use: Reports: None - Recreational Drug Use Recreational Drug Use: No - Living Situation & Occupation Living situation: Reports: Single, with Family Occupation: Unemployed ED ROS GENERAL - Review of Systems Review Of Systems: Comprehensive ROS is negative, except as noted in HPI. ED EXAM, GENERAL - Physical Exam Exam: See Below (see dictation) Course - Vital Signs Last Recorded V/S: Last Vital Signs Temp 38.6 C H 01/20/19 22:24 Pulse 104 H 01/20/19 22:24 Resp 22 H 01/20/19 22:24 BP 123/72 01/20/19 21:15 Pulse Ox 99 01/20/19 22:24 - Orders/Labs/Meds Orders: Active Orders 24 hr Category Date Time Status Patient Status [ADT] Stat ADT 01/20/19 22:26 Ordered CULTURE BLOOD [BC] Stat Lab 01/20/19 21:31 Ordered CULTURE BLOOD [BC] Stat Lab 01/20/19 21:34 Received CULTURE URINE [RM] Stat Lab 01/20/19 21:21 Received TYPE AND SCREEN [BBK] Stat Lab 01/20/19 22:02 Ordered Sodium Chloride 0.9% [Normal Saline] 1,000 ml Med 01/20/19 21:35 Active IV STAT Sodium Chloride 0.9% [Normal Saline] 1,000 ml Med 01/20/19 22:25 Ordered IV STAT Sodium Chloride 0.9% [Saline Flush] Med 01/20/19 21:30 Active 10 ml FLUSH ASDIRECTED PRN Sodium Chloride 0.9% [Saline Flush] Med 01/20/19 21:30 Active 2.5 ml FLUSH ASDIRECTED PRN Blood Culture x2 Reflex Set [OM.PC] Stat Oth 01/20/19 21:31 Ordered Saline Lock Insert [OM.PC] Stat Oth 01/20/19 21:30 Ordered Transfuse PRBC [Transfuse Red Blood Cells] [COMM] Stat Oth 01/20/19 22:25 Ordered Medication Orders Sodium Chloride (Normal Saline) 1,000 mls @ 999 mls/hr IV STAT ONE Stop: 01/20/19 22:35 Last Admin: 01/20/19 21:38 Dose: 999 mls/hr Sodium Chloride (Normal Saline) 1,000 mls @ 999 mls/hr IV STAT ONE Stop: 01/20/19 23:25 Sodium Chloride (Saline Flush) 10 ml FLUSH ASDIRECTED PRN PRN Reason: Keep Vein Open Last Admin: 01/20/19 21:39 Dose: 10 ml Sodium Chloride (Saline Flush) 2.5 ml FLUSH ASDIRECTED PRN PRN Reason: Keep Vein Open Last Admin: 01/20/19 21:40 Dose: 2.5 ml Labs: Laboratory Tests 01/20/19 01/20/19 01/20/19 Range/Units 21:21 21:21 21:35 WBC 11.76 H (4.0-11.0) K/uL RBC 3.98 L (4.30-5.90) M/uL Hgb 6.7 L (12.0-16.0) g/dL Hct 25.4 L (36.0-46.0) % MCV 63.8 L (80.0-98.0) fL MCH 16.8 L (27.0-32.0) pg MCHC 26.4 L (31.0-37.0) g/dL RDW Std Deviation 48.3 (28.0-62.0) fl RDW Coeff of Aniyah 21 H (11.0-15.0) % Plt Count 213 (150-400) K/uL Neut % (Auto) 83.6 H (48.0-80.0) % Lymph % (Auto) 7.1 L (16.0-40.0) % [place] % (Auto) 8.9 (0.0-15.0) % Eos % (Auto) 0.2 (0.0-7.0) % Baso % (Auto) 0.2 (0.0-1.5) % Neut # (Auto) 9.8 H (1.4-5.7) K/uL Lymph # (Auto) 0.8 (0.6-2.4) K/uL [place] # (Auto) 1.1 H (0.0-0.8) K/uL Eos # (Auto) 0.0 (0.0-0.7) K/uL Baso # (Auto) 0.0 (0.0-0.1) K/uL Nucleated RBC % 0.5 /100WBC Nucleated RBCs # 0 K/uL Lactate (0.20-2.00) mmol/L Sodium (136-145) mmol/L Potassium (3.5-5.1) mmol/L Chloride (98-107) mmol/L Carbon Dioxide (21.0-32.0) mmol/L BUN (7.0-18.0) mg/dL Creatinine (0.6-1.0) mg/dL Est Cr Clr Drug Dosing Estimated GFR (MDRD) ml/min Glucose (74-106) mg/dL Calcium (8.5-10.1) mg/dL Total Bilirubin (0.2-1.0) mg/dL AST (15-37) IU/L ALT (14-63) IU/L Alkaline Phosphatase (46-116) U/L Total Protein (6.4-8.2) g/dL Albumin (3.4-5.0) g/dL Globulin (2.6-4.0) g/dL Albumin/Globulin Ratio (0.9-1.6) Lipase (73-393) U/L Urine Color YELLOW Urine Appearance CLOUDY Urine pH 6.0 (5.0-8.0) Ur Specific [place] 1.025 (1.001-1.035) Urine Protein >=300 H (NEGATIVE) mg/dL Urine Glucose (UA) NEGATIVE (NEGATIVE) mg/dL Urine Ketones TRACE H (NEGATIVE) mg/dL Urine Occult Blood SMALL H (NEGATIVE) Urine Nitrite POSITIVE H (NEGATIVE) Urine Bilirubin SMALL H (NEGATIVE) Urine Ictotest POSITIVE Urine Urobilinogen 2.0 H (<2.0) EU/dL Ur Leukocyte Esterase SMALL H (NEGATIVE) Urine RBC 0-1 (0-2/HPF) Urine WBC 28-32 (0-5/HPF) Ur Epithelial Cells FEW (NONE-FEW) Urine Bacteria 2+ H (NEGATIVE) Urine Mucus LIGHT (NONE-MOD) Urine HCG, Qual NEGATIVE (NEGATIVE) 01/20/19 01/20/19 Range/Units 21:35 21:35 WBC (4.0-11.0) K/uL RBC (4.30-5.90) M/uL Hgb (12.0-16.0) g/dL Hct (36.0-46.0) % MCV (80.0-98.0) fL MCH (27.0-32.0) pg MCHC (31.0-37.0) g/dL RDW Std Deviation (28.0-62.0) fl RDW Coeff of Aniyah (11.0-15.0) % Plt Count (150-400) K/uL Neut % (Auto) (48.0-80.0) % Lymph % (Auto) (16.0-40.0) % [place] % (Auto) (0.0-15.0) % Eos % (Auto) (0.0-7.0) % Baso % (Auto) (0.0-1.5) % Neut # (Auto) (1.4-5.7) K/uL Lymph # (Auto) (0.6-2.4) K/uL [place] # (Auto) (0.0-0.8) K/uL Eos # (Auto) (0.0-0.7) K/uL Baso # (Auto) (0.0-0.1) K/uL Nucleated RBC % /100WBC Nucleated RBCs # K/uL Lactate 2.3 H* (0.20-2.00) mmol/L Sodium 135 L (136-145) mmol/L Potassium 3.3 L (3.5-5.1) mmol/L Chloride 100 (98-107) mmol/L Carbon Dioxide 20.6 L (21.0-32.0) mmol/L BUN 7 (7.0-18.0) mg/dL Creatinine 0.8 (0.6-1.0) mg/dL Est Cr Clr Drug Dosing TNP Estimated GFR (MDRD) > 60.0 ml/min Glucose 121 H (74-106) mg/dL Calcium 8.1 L (8.5-10.1) mg/dL Total Bilirubin 1.9 H (0.2-1.0) mg/dL AST 65 H (15-37) IU/L ALT 60 (14-63) IU/L Alkaline Phosphatase 160 H (46-116) U/L Total Protein 8.3 H (6.4-8.2) g/dL Albumin 3.6 (3.4-5.0) g/dL Globulin 4.7 H (2.6-4.0) g/dL Albumin/Globulin Ratio 0.8 L (0.9-1.6) Lipase 85 (73-393) U/L Urine Color Urine Appearance Urine pH (5.0-8.0) Ur Specific [place] (1.001-1.035) Urine Protein (NEGATIVE) mg/dL Urine Glucose (UA) (NEGATIVE) mg/dL Urine Ketones (NEGATIVE) mg/dL Urine Occult Blood (NEGATIVE) Urine Nitrite (NEGATIVE) Urine Bilirubin (NEGATIVE) Urine Ictotest Urine Urobilinogen (<2.0) EU/dL Ur Leukocyte Esterase (NEGATIVE) Urine RBC (0-2/HPF) Urine WBC (0-5/HPF) Ur Epithelial Cells (NONE-FEW) Urine Bacteria (NEGATIVE) Urine Mucus (NONE-MOD) Urine HCG, Qual (NEGATIVE) Meds: Medications Generic Name Dose Route Start Last Admin Trade Name Melissa PRN Reason Stop Dose Admin Sodium Chloride 1,000 mls @ 999 mls/hr 01/20/19 21:35 01/20/19 21:38 Normal Saline IV 01/20/19 22:35 999 mls/hr STAT ONE Administration Sodium Chloride 1,000 mls @ 999 mls/hr 01/20/19 22:25 Normal Saline IV 01/20/19 23:25 STAT ONE Sodium Chloride 10 ml 01/20/19 21:30 01/20/19 21:39 Saline Flush FLUSH 10 ml ASDIRECTED PRN Administration Keep Vein Open Sodium Chloride 2.5 ml 01/20/19 21:30 01/20/19 21:40 Saline Flush FLUSH 2.5 ml ASDIRECTED PRN Administration Keep Vein Open Discontinued Medications Generic Name Dose Route Start Last Admin Trade Name Melissa PRN Reason Stop Dose Admin Acetaminophen 1,000 mg 01/20/19 22:25 Tylenol Extra Strength PO 01/20/19 22:26 ONETIME ONE Ceftriaxone Sodium/Dextrose 1 50 mls @ 100 mls/hr 01/20/19 21:45 gm/ Premix IV 01/20/19 22:14 ONETIME ONE Ketorolac Tromethamine 30 mg 01/20/19 21:35 01/20/19 21:44 Toradol IVPUSH 01/20/19 21:36 30 mg ONETIME ONE Administration Ondansetron HCl 4 mg 01/20/19 21:35 01/20/19 21:38 Zofran IVPUSH 01/20/19 21:36 4 mg ONETIME ONE Administration Departure - Departure Disposition: Refer to Observation Clinical Impression: Pyelonephritis Anemia Qualifiers: Anemia type: unspecified type Qualified Code(s): D64.9 - Anemia, unspecified - Discharge Information Referrals: PCP,None [Primary Care Provider] - Forms: ED Department Discharge Sepsis Event Note - Evaluation Sepsis Screening Result: Possible Sepsis Risk - Focused Exam Vital Signs: Vital Signs Temp Pulse Resp BP Pulse Ox 01/20/19 22:24 38.6 C H 104 H 22 H 99 01/20/19 21:41 104 H 24 H 98 01/20/19 21:15 39.4 C H 119 H 18 123/72 98 Date Exam was Performed: 01/20/19 Time Exam was Performed: 21:56 - My Orders Last 24 Hours: My Active Orders 01/20/19 22:02 TYPE AND SCREEN [BBK] Stat 01/20/19 22:25 Sodium Chloride 0.9% [Normal Saline] 1,000 ml IV STAT Transfuse PRBC [Transfuse Red Blood Cells] [COMM] Stat 01/20/19 22:26 Patient Status [ADT] Stat - Assessment/Plan Last 24 Hours: My Active Orders 01/20/19 22:02 TYPE AND SCREEN [BBK] Stat 01/20/19 22:25 Sodium Chloride 0.9% [Normal Saline] 1,000 ml IV STAT Transfuse PRBC [Transfuse Red Blood Cells] [COMM] Stat 01/20/19 22:26 Patient Status [ADT] Stat <Evelyn Montgomery - Last Filed: 01/20/19 22:29> ED HPI GENERAL MEDICAL PROBLEM - History of Present Illness INITIAL COMMENTS - FREE TEXT/NARRATIVE: This is Dr. Montgomery dictating addendum note as I have assumed care of this case at 10 PM. I have reviewed all the labs and discussed them with the patient and mother at bedside. The patient is aware that she does have a pyelonephritis and is still tachycardic and febrile currently. I will give her another liter of IV fluids and and I will as she is still febrile. 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 She has an IUD in place and has not had a period in 2 months and she denies any bleeding from her gums or nose no blood in her stools or black stools and no urinary hematuria. I discussed this case with our hospitalist Dr. Alvarez at 22 :22 PM and she agrees with transfusion of 1 unit of blood and admission to observation. She is aware of the history. The patient says that she is currently feeling much better and is having much less pain after the Toradol. Blood and urine cultures have been sent and I am currently ordering the repeat IV fluid bolus and Tylenol. Please change impression above to pyelonephritis, acute on chronic anemia ED ROS GENERAL - Review of Systems Review Of Systems: Comprehensive ROS is negative, except as noted in HPI. Departure - Departure Time of Disposition: 22:29 Condition: Good Sepsis Event Note - Focused Exam Date Exam was Performed: 01/20/19 Time Exam was Performed: 22:27
[2019-01-20] MEDS ORDERED: cefTRIAXone 1 GM in Premix Bag 1 BAG IV ONE (21:45)
[2019-01-20 22:08] LABS: BLOOD UREA NITROGEN,BUN 7 mg/dL (7.0-18.0); CARBON DIOXIDE,CO2 20.6 mmol/L (21.0-32.0); CHLORIDE,CL 100 mmol/L (98-107); GLUCOSE RANDOM 121 mg/dL (74-106); LIPASE 85 U/L (73-393); POTASSIUM,K 3.3 mmol/L (3.5-5.1); SODIUM,NA 135 mmol/L (136-145)
[2019-01-20] MEDS ORDERED: Acetaminophen 500 MG Tab PO ONE (22:25)
[2019-01-20] MEDS ORDERED: Acetaminophen 325 MG Tab PO PRN (23:21)
[2019-01-20] MEDS ORDERED: Albuterol/Ipratropium 3.0-0.5 MG/3 ML Neb Soln NEB PRN (23:21)
[2019-01-20] MEDS ORDERED: Ondansetron 4 MG/2 ML SDV IVPUSH PRN (23:21)
[2019-01-20] MEDS ORDERED: Morphine 10 MG/ML Syringe IVPUSH PRN (23:21)
[2019-01-20] MEDS ORDERED: Sodium Chloride 0.9% 1,000 ML IV SCH (23:30)
[2019-01-20] MEDS ORDERED: Potassium Chloride 20 MEQ Tab.ER PO ONE (23:35)
[2019-01-21] MEDS: Ibuprofen 400 MG Tab PO PRN ×2 (03:56→19:05)
[2019-01-21 07:15] LABS: BLOOD UREA NITROGEN,BUN 7 mg/dL (7.0-18.0); CARBON DIOXIDE,CO2 21.2 mmol/L (21.0-32.0); CHLORIDE,CL 104 mmol/L (98-107); GLUCOSE RANDOM 108 mg/dL (74-106); POTASSIUM,K 3.7 mmol/L (3.5-5.1); SODIUM,NA 136 mmol/L (136-145)
[2019-01-21] MEDS ORDERED: Morphine 2 MG/ML Syringe IVPUSH PRN (07:19)
[2019-01-21] MEDS ORDERED: Iron Sucrose Complex 500 MG in Sodium Chloride 0.9% 250 ML IV ONE (08:02)
--- NOTE | 2019-01-21 08:11 | PCM.HP.2 ---
H&P History of Present Illness - General Date of Service: 01/21/19 Admit Problem/Dx: Admission Diagnosis/Problem Admission Diagnosis/Problem Pyelonephritis Source of Information: Patient History Limitations: Reports: No Limitations - History of Present Illness Initial Comments - Free Text/Narative: This 27 year old female with pmh oa severe anemia secondary to menorrhagia with poor compliance with follow up presented to the ED with concerns of R sided back pain and burning with urination for 1 day. She reports this is accompanied by fevers and chills. She denies history of kidney stones. No recent cough or URI symptoms. No neck pain. She denies taking anything for the pain or fevers. She reports she has not been taking her iron as prescribed due to it causing constipation. In the ED leukocytosis noted at 11,760, hgb 6.7, hct 25.4, lactic acid 2.3, Na 135, K 3.3 Iron 18 TIBC 475, bilirubin elevated at 1.9, AST 65 and ALT 60. UA revealed +2 bacteria with positive nitrite and leukocyte esterase along with small blood. BC and UC obtained. Regarding anemia she reports she was worked up for this in [place] with EGD/ colonoscopy and SOAKER in September 2018 when she was transferred from our facility to [place] for hgb of 2.7. She had EGD which was normal and bleeding was thought to be from metromenorrhagia IUD was placed in [facility] this spring and remains in place. She reports she has not has a period in 2 months now. But again remains non complaint with Iron supplementation. right flank Pain Score (Numeric/FACES): 8 - Related Data Allergies/Adverse Reactions: Allergies Allergy/AdvReac Type Severity Reaction Status Date / Time No Known Allergies Allergy Verified 01/21/19 06:16 Home Medications: Home Meds . [No Known Home Meds] 09/06/18 [History] Past Medical History HEENT History: Reports: None Cardiovascular History: Reports: None Respiratory History: Reports: None Gastrointestinal History: Reports: None Genitourinary History: Reports: None, Other (See Below) Other Genitourinary History: current pyelonephritis SOAKER History: Reports: Other OB/BYN History: emergency c section on 2nd Musculoskeletal History: Reports: None Neurological History: Reports: None Psychiatric History: Reports: None Endocrine/Metabolic History: Reports: None Hematologic History: Reports: Anemia, Iron Deficiency Other Hematologic History: anemia 2nd to miscarriage Immunologic History: Reports: None Oncologic (Cancer) History: Reports: None Dermatologic History: Reports: None - Infectious Disease History Infectious Disease History: Reports: None - Past Surgical History Head Surgeries/Procedures: Reports: None Cardiovascular Surgical History: Reports: None Respiratory Surgical History: Reports: None GI Surgical History: Reports: None Female Surgical History: Reports: Section Neurological Surgical History: Reports: None Musculoskeletal Surgical History: Reports: None Dermatological Surgical History: Reports: None Social & Family History - Family History Family Medical History: Noncontributory - Tobacco Use Smoking Status *Q: Current Every Day Smoker Years of Tobacco use: 10 Packs/Tins Daily: 0.5 - Caffeine Use Caffeine Use: Reports: Soda - Recreational Drug Use Recreational Drug Use: No - Living Situation & Occupation Living situation: Reports: Single, with Family Occupation: Unemployed H&P Review of Systems - Review of Systems: Review Of Systems: See Below General: Reports: Fever, Chills, Malaise, Fatigue Cardiovascular: Reports: No Symptoms. Denies: Chest Pain Gastrointestinal: Reports: No Symptoms. Denies: Abdominal Pain, Black Stool, Bloody Stool Genitourinary: Reports: Dysuria, Frequency, Flank Pain Musculoskeletal: Reports: Back Pain Psychiatric: Reports: No Symptoms Neurological: Reports: No Symptoms Hematologic/Lymphatic: Reports: No Symptoms Immunologic: Reports: No Symptoms Exam - Exam Exam: See Below - Vital Signs Vital Signs: Last Vital Signs Temp 97.3 F 01/21/19 07:53 Pulse 101 H 01/21/19 07:53 Resp 16 01/21/19 07:53 BP 107/52 L 01/21/19 07:53 Pulse Ox 97 01/21/19 07:53 Weight: 71.7 kg - Exam General: Alert, Oriented, Cooperative HEENT: Conjunctiva Clear, Mucosa Moist & [place] Lungs: Clear to Auscultation, Normal Respiratory Effort Cardiovascular: Regular Rate, Regular Rhythm GI/Abdominal Exam: Normal Bowel Sounds, Soft, Non-Tender Back Exam: Normal Inspection, Full Range of Motion. No: CVA Tenderness (L), CVA Tenderness (R) Extremities: Normal Inspection, Normal Range of Motion, Non-Tender Neuro Extensive - Mental Status: Alert, Oriented x3 Neuro Extensive - Motor, Sensory, Reflexes: CN II-XII Intact Psychiatric: Alert, Normal Affect, Normal Mood - Patient Data Lab Results Last 24 hrs: Laboratory Results - last 24 hr 01/20/19 01/20/19 01/20/19 Range/Units 21:21 21:21 21:35 WBC 11.76 H (4.0-11.0) K/uL RBC 3.98 L (4.30-5.90) M/uL Hgb 6.7 L (12.0-16.0) g/dL Hct 25.4 L (36.0-46.0) % MCV 63.8 L (80.0-98.0) fL MCH 16.8 L (27.0-32.0) pg MCHC 26.4 L (31.0-37.0) g/dL RDW Std Deviation 48.3 (28.0-62.0) fl RDW Coeff of Aniyah 21 H (11.0-15.0) % Plt Count 213 (150-400) K/uL MPV (7.40-12.00) fL Neut % (Auto) 83.6 H (48.0-80.0) % Lymph % (Auto) 7.1 L (16.0-40.0) % Butts % (Auto) 8.9 (0.0-15.0) % Eos % (Auto) 0.2 (0.0-7.0) % Baso % (Auto) 0.2 (0.0-1.5) % Neut # (Auto) 9.8 H (1.4-5.7) K/uL Lymph # (Auto) 0.8 (0.6-2.4) K/uL Butts # (Auto) 1.1 H (0.0-0.8) K/uL Eos # (Auto) 0.0 (0.0-0.7) K/uL Baso # (Auto) 0.0 (0.0-0.1) K/uL Nucleated RBC % 0.5 /100WBC Nucleated RBCs # 0 K/uL Lactate (0.20-2.00) mmol/L Sodium (136-145) mmol/L Potassium (3.5-5.1) mmol/L Chloride (98-107) mmol/L Carbon Dioxide (21.0-32.0) mmol/L BUN (7.0-18.0) mg/dL Creatinine (0.6-1.0) mg/dL Est Cr Clr Drug Dosing Estimated GFR (MDRD) ml/min Glucose (74-106) mg/dL Calcium (8.5-10.1) mg/dL Iron (50-175) ug/dL TIBC (250-450) ug/dL % Saturation (20-55) % Ferritin (8-252) ng/mL Total Bilirubin (0.2-1.0) mg/dL AST (15-37) IU/L ALT (14-63) IU/L Alkaline Phosphatase (46-116) U/L Total Protein (6.4-8.2) g/dL Albumin (3.4-5.0) g/dL Globulin (2.6-4.0) g/dL Albumin/Globulin Ratio (0.9-1.6) Lipase (73-393) U/L Urine Color YELLOW Urine Appearance CLOUDY Urine pH 6.0 (5.0-8.0) Ur Specific [place] 1.025 (1.001-1.035) Urine Protein >=300 H (NEGATIVE) mg/dL Urine Glucose (UA) NEGATIVE (NEGATIVE) mg/dL Urine Ketones TRACE H (NEGATIVE) mg/dL Urine Occult Blood SMALL H (NEGATIVE) Urine Nitrite POSITIVE H (NEGATIVE) Urine Bilirubin SMALL H (NEGATIVE) Urine Ictotest POSITIVE Urine Urobilinogen 2.0 H (<2.0) EU/dL Ur Leukocyte Esterase SMALL H (NEGATIVE) Urine RBC 0-1 (0-2/HPF) Urine WBC 28-32 (0-5/HPF) Ur Epithelial Cells FEW (NONE-FEW) Urine Bacteria 2+ H (NEGATIVE) Urine Mucus LIGHT (NONE-MOD) Urine HCG, Qual NEGATIVE (NEGATIVE) Blood Type Antibody Screen Crossmatch 01/20/19 01/20/19 01/20/19 Range/Units 21:35 21:35 21:35 WBC (4.0-11.0) K/uL RBC (4.30-5.90) M/uL Hgb (12.0-16.0) g/dL Hct (36.0-46.0) % MCV (80.0-98.0) fL MCH (27.0-32.0) pg MCHC (31.0-37.0) g/dL RDW Std Deviation (28.0-62.0) fl RDW Coeff of Aniyah (11.0-15.0) % Plt Count (150-400) K/uL MPV (7.40-12.00) fL Neut % (Auto) (48.0-80.0) % Lymph % (Auto) (16.0-40.0) % Butts % (Auto) (0.0-15.0) % Eos % (Auto) (0.0-7.0) % Baso % (Auto) (0.0-1.5) % Neut # (Auto) (1.4-5.7) K/uL Lymph # (Auto) (0.6-2.4) K/uL Butts # (Auto) (0.0-0.8) K/uL Eos # (Auto) (0.0-0.7) K/uL Baso # (Auto) (0.0-0.1) K/uL Nucleated RBC % /100WBC Nucleated RBCs # K/uL Lactate 2.3 H* (0.20-2.00) mmol/L Sodium 135 L (136-145) mmol/L Potassium 3.3 L (3.5-5.1) mmol/L Chloride 100 (98-107) mmol/L Carbon Dioxide 20.6 L (21.0-32.0) mmol/L BUN 7 (7.0-18.0) mg/dL Creatinine 0.8 (0.6-1.0) mg/dL Est Cr Clr Drug Dosing TNP Estimated GFR (MDRD) > 60.0 ml/min Glucose 121 H (74-106) mg/dL Calcium 8.1 L (8.5-10.1) mg/dL Iron 18 L (50-175) ug/dL TIBC 475 H (250-450) ug/dL % Saturation 3.79 L (20-55) % Ferritin 8 (8-252) ng/mL Total Bilirubin 1.9 H (0.2-1.0) mg/dL AST 65 H (15-37) IU/L ALT 60 (14-63) IU/L Alkaline Phosphatase 160 H (46-116) U/L Total Protein 8.3 H (6.4-8.2) g/dL Albumin 3.6 (3.4-5.0) g/dL Globulin 4.7 H (2.6-4.0) g/dL Albumin/Globulin Ratio 0.8 L (0.9-1.6) Lipase 85 (73-393) U/L Urine Color Urine Appearance Urine pH (5.0-8.0) Ur Specific [place] (1.001-1.035) Urine Protein (NEGATIVE) mg/dL Urine Glucose (UA) (NEGATIVE) mg/dL Urine Ketones (NEGATIVE) mg/dL Urine Occult Blood (NEGATIVE) Urine Nitrite (NEGATIVE) Urine Bilirubin (NEGATIVE) Urine Ictotest Urine Urobilinogen (<2.0) EU/dL Ur Leukocyte Esterase (NEGATIVE) Urine RBC (0-2/HPF) Urine WBC (0-5/HPF) Ur Epithelial Cells (NONE-FEW) Urine Bacteria (NEGATIVE) Urine Mucus (NONE-MOD) Urine HCG, Qual (NEGATIVE) Blood Type Antibody Screen Crossmatch 01/20/19 01/21/19 01/21/19 Range/Units 22:26 02:40 05:32 WBC 12.35 H (4.0-11.0) K/uL RBC 3.80 L (4.30-5.90) M/uL Hgb 7.0 L (12.0-16.0) g/dL Hct 25.6 L (36.0-46.0) % MCV 67.4 L (80.0-98.0) fL MCH 18.4 L (27.0-32.0) pg MCHC 27.3 L (31.0-37.0) g/dL RDW Std Deviation 55.4 (28.0-62.0) fl RDW Coeff of Aniyah 23 H (11.0-15.0) % Plt Count 217 (150-400) K/uL MPV 10.00 (7.40-12.00) fL Neut % (Auto) 89.7 H (48.0-80.0) % Lymph % (Auto) 3.0 L (16.0-40.0) % Butts % (Auto) 7.0 (0.0-15.0) % Eos % (Auto) 0.1 (0.0-7.0) % Baso % (Auto) 0.2 (0.0-1.5) % Neut # (Auto) 11.1 H (1.4-5.7) K/uL Lymph # (Auto) 0.4 L (0.6-2.4) K/uL Butts # (Auto) 0.9 H (0.0-0.8) K/uL Eos # (Auto) 0.0 (0.0-0.7) K/uL Baso # (Auto) 0.0 (0.0-0.1) K/uL Nucleated RBC % 0.5 /100WBC Nucleated RBCs # 0 K/uL Lactate 1.6 (0.20-2.00) mmol/L Sodium (136-145) mmol/L Potassium (3.5-5.1) mmol/L Chloride (98-107) mmol/L Carbon Dioxide (21.0-32.0) mmol/L BUN (7.0-18.0) mg/dL Creatinine (0.6-1.0) mg/dL Est Cr Clr Drug Dosing Estimated GFR (MDRD) ml/min Glucose (74-106) mg/dL Calcium (8.5-10.1) mg/dL Iron (50-175) ug/dL TIBC (250-450) ug/dL % Saturation (20-55) % Ferritin (8-252) ng/mL Total Bilirubin (0.2-1.0) mg/dL AST (15-37) IU/L ALT (14-63) IU/L Alkaline Phosphatase (46-116) U/L Total Protein (6.4-8.2) g/dL Albumin (3.4-5.0) g/dL Globulin (2.6-4.0) g/dL Albumin/Globulin Ratio (0.9-1.6) Lipase (73-393) U/L Urine Color Urine Appearance Urine pH (5.0-8.0) Ur Specific [place] (1.001-1.035) Urine Protein (NEGATIVE) mg/dL Urine Glucose (UA) (NEGATIVE) mg/dL Urine Ketones (NEGATIVE) mg/dL Urine Occult Blood (NEGATIVE) Urine Nitrite (NEGATIVE) Urine Bilirubin (NEGATIVE) Urine Ictotest Urine Urobilinogen (<2.0) EU/dL Ur Leukocyte Esterase (NEGATIVE) Urine RBC (0-2/HPF) Urine WBC (0-5/HPF) Ur Epithelial Cells (NONE-FEW) Urine Bacteria (NEGATIVE) Urine Mucus (NONE-MOD) Urine HCG, Qual (NEGATIVE) Blood Type O POSITIVE Antibody Screen NEGATIVE Crossmatch See Detail 01/21/19 Range/Units 05:32 WBC (4.0-11.0) K/uL RBC (4.30-5.90) M/uL Hgb (12.0-16.0) g/dL Hct (36.0-46.0) % MCV (80.0-98.0) fL MCH (27.0-32.0) pg MCHC (31.0-37.0) g/dL RDW Std Deviation (28.0-62.0) fl RDW Coeff of Aniyah (11.0-15.0) % Plt Count (150-400) K/uL MPV (7.40-12.00) fL Neut % (Auto) (48.0-80.0) % Lymph % (Auto) (16.0-40.0) % Butts % (Auto) (0.0-15.0) % Eos % (Auto) (0.0-7.0) % Baso % (Auto) (0.0-1.5) % Neut # (Auto) (1.4-5.7) K/uL Lymph # (Auto) (0.6-2.4) K/uL Butts # (Auto) (0.0-0.8) K/uL Eos # (Auto) (0.0-0.7) K/uL Baso # (Auto) (0.0-0.1) K/uL Nucleated RBC % /100WBC Nucleated RBCs # K/uL Lactate (0.20-2.00) mmol/L Sodium 136 (136-145) mmol/L Potassium 3.7 (3.5-5.1) mmol/L Chloride 104 (98-107) mmol/L Carbon Dioxide 21.2 (21.0-32.0) mmol/L BUN 7 (7.0-18.0) mg/dL Creatinine 0.7 (0.6-1.0) mg/dL Est Cr Clr Drug Dosing 105.17 Estimated GFR (MDRD) > 60.0 ml/min Glucose 108 H (74-106) mg/dL Calcium 7.8 L (8.5-10.1) mg/dL Iron (50-175) ug/dL TIBC (250-450) ug/dL % Saturation (20-55) % Ferritin (8-252) ng/mL Total Bilirubin 1.5 H (0.2-1.0) mg/dL AST 117 H (15-37) IU/L ALT 87 H (14-63) IU/L Alkaline Phosphatase 149 H (46-116) U/L Total Protein 7.2 (6.4-8.2) g/dL Albumin 3.0 L (3.4-5.0) g/dL Globulin 4.2 H (2.6-4.0) g/dL Albumin/Globulin Ratio 0.7 L (0.9-1.6) Lipase (73-393) U/L Urine Color Urine Appearance Urine pH (5.0-8.0) Ur Specific [place] (1.001-1.035) Urine Protein (NEGATIVE) mg/dL Urine Glucose (UA) (NEGATIVE) mg/dL Urine Ketones (NEGATIVE) mg/dL Urine Occult Blood (NEGATIVE) Urine Nitrite (NEGATIVE) Urine Bilirubin (NEGATIVE) Urine Ictotest Urine Urobilinogen (<2.0) EU/dL Ur Leukocyte Esterase (NEGATIVE) Urine RBC (0-2/HPF) Urine WBC (0-5/HPF) Ur Epithelial Cells (NONE-FEW) Urine Bacteria (NEGATIVE) Urine Mucus (NONE-MOD) Urine HCG, Qual (NEGATIVE) Blood Type Antibody Screen Crossmatch Result Diagrams: 01/21/19 05:32 01/21/19 05:32 Manish Results Last 24 hrs: Microbiology 01/20/19 21:28 Influenza Type A Antigen Screen - Final Nasopharyngeal Swab NEGATIVE INFLUENZA A VIRUS AG REFERENCE RANGE: NEGATIVE Influenza Type B Antigen Screen - Final NEGATIVE INFLUENZA B VIRUS AG REFERENCE RANGE: NEGATIVE Sepsis Event Note - Evaluation Sepsis Screening Result: Severe Sepsis Risk - Focused Exam Vital Signs: Vital Signs Temp Temp Temp Pulse Resp BP Pulse Ox 01/21/19 07:53 97.3 F 101 H 16 107/52 L 97 01/21/19 06:01 100.1 F 01/21/19 05:13 101.9 F H 01/21/19 04:39 102.5 F H 120 H 18 112/68 98 01/21/19 03:56 101.3 F H 01/21/19 03:39 102.2 F H 113 H 18 131/64 97 01/21/19 01:15 97 F 95 16 106/58 L 97 01/21/19 01:00 98 F 99 16 105/56 L 99 01/20/19 23:45 97.2 F 102 H 14 112/62 96 01/20/19 23:35 97.2 F 01/20/19 23:15 100.2 F 105 H 20 108/57 L 100 01/20/19 22:31 101.2 F H 01/20/19 22:24 101.5 F H 104 H 22 H 111/62 99 01/20/19 21:41 104 H 24 H 98 01/20/19 21:15 102.9 F H 119 H 18 123/72 98 Date Exam was Performed: 01/21/19 Time Exam was Performed: 12:08 - Problem List (1) Sepsis SNOMED Code(s): 86899599 ICD Code: A41.9 - SEPSIS, UNSPECIFIED ORGANISM Status: Acute Current Visit: Yes (2) Pyelonephritis SNOMED Code(s): 10906455 ICD Code: N12 - TUBULO-INTERSTITIAL NEPHRITIS, NOT SPCF ACUTE OR CHRONIC Status: Acute Current Visit: Yes (3) Menometrorrhagia SNOMED Code(s): 636592189 ICD Code: N92.1 - EXCESSIVE AND FREQUENT MENSTRUATION WITH IRREGULAR CYCLE Status: Chronic Priority: High Current Visit: No (4) Chronic blood loss anemia SNOMED Code(s): 165149105 ICD Code: D50.0 - IRON DEFICIENCY ANEMIA SECONDARY TO BLOOD LOSS (CHRONIC) Status: Chronic Priority: High Current Visit: No Problem Details: Profound , initial hemoglobin 3.3 g/dL (5) Non compliance w medication regimen SNOMED Code(s): 412071430 ICD Code: Z91.14 - PATIENT'S OTHER NONCOMPLIANCE WITH MEDICATION REGIMEN Status: Chronic Priority: High Current Visit: No (6) Anemia SNOMED Code(s): 878907281 ICD Code: D64.9 - ANEMIA, UNSPECIFIED Status: Chronic Current Visit: Yes Qualifiers: Anemia type: unspecified type Qualified Code(s): D64.9 - Anemia, unspecified Problem List Initiated/Reviewed/Updated: Yes Orders Last 24hrs: Active Orders 24 hr Category Date Time Status Patient Status [ADT] Stat ADT 01/20/19 22:26 Active Ambulate [RC] ASDIRECTED Care 01/20/19 23:21 Active Antiembolic Devices [RC] PER UNIT ROUTINE Care 01/20/19 23:23 Active Fecal Occult Blood Collection [RC] ASDIRECTED Care 01/20/19 23:44 Active Influenza Vaccine Charge [RC] .DISCHARGE Care 01/20/19 23:58 Active Oxygen Therapy [RC] PRN Care 01/20/19 23:21 Active RT Aerosol Therapy [RC] ASDIRECTED Care 01/20/19 23:24 Active VTE/DVT Education [RC] PER UNIT ROUTINE Care 01/20/19 23:21 Active Vital Signs [RC] Q4H Care 01/20/19 23:21 Active Regular Diet [DIET] Diet 01/21/19 Breakfast Active CULTURE BLOOD [BC] Stat Lab 01/20/19 21:34 Received CULTURE BLOOD [BC] Stat Lab 01/20/19 22:26 Received CULTURE URINE [RM] Stat Lab 01/20/19 21:21 Received RED BLOOD CELLS LP [BBK] Stat Lab 01/20/19 22:26 Results TRANSFUSION REACTION [BBK] Routine Lab 01/21/19 04:40 Received TYPE AND SCREEN [BBK] Stat Lab 01/20/19 22:26 Results Albuterol/Ipratropium [DuoNeb 3.0-0.5 MG/3 ML] Med 01/20/19 23:21 Active 3 ml NEB Q4HRRT PRN FLU Vacc [id number](6MOS+)/PF [Fluzone Quad Med 01/21/19 10:00 Once Syringe] 60 mcg IM .ONCE ONE Ibuprofen [Motrin] Med 01/21/19 01:00 Active 400 mg PO Q6H PRN Iron Sucrose Complex [Venofer] 500 mg Med 01/21/19 08:02 Active Sodium Chloride 0.9% [Normal Saline] 250 ml IV ONETIME Morphine Med 01/21/19 07:19 Active 2 mg IVPUSH Q4H PRN Ondansetron [Zofran] Med 01/20/19 23:21 Active 4 mg IVPUSH Q4H PRN Sodium Chloride 0.9% [Normal Saline] 1,000 ml Med 01/21/19 08:15 Active IV Q8H Sodium Chloride 0.9% [Saline Flush] Med 01/20/19 21:30 Active 10 ml FLUSH ASDIRECTED PRN Sodium Chloride 0.9% [Saline Flush] Med 01/20/19 21:30 Active 2.5 ml FLUSH ASDIRECTED PRN cefTRIAXone [Rocephin in Dextrose,Iso-Osm 1 GM/50 ML] 1 Med 01/21/19 09:00 Active gm Premix Bag 1 bag IV Q24H Blood Culture x2 Reflex Set [OM.PC] Stat Ot 01/20/19 21:31 Ordered Saline Lock Insert [OM.PC] Stat Ot 01/20/19 21:30 Ordered Sequential Compression Device [OM.PC] Per Unit Routine Ot 01/20/19 23:22 Ordered Transfuse PRBC [Transfuse Red Blood Cells] [COMM] Stat Ot 01/20/19 22:25 Ordered Resuscitation Status Routine Resus Stat 01/20/19 23:21 Ordered Medication Orders Albuterol/Ipratropium (Duoneb 3.0-0.5 Mg/3 Ml) 3 ml NEB Q4HRRT PRN PRN Reason: Shortness Of Breath/wheezing Ceftriaxone Sodium/Dextrose 1 (gm/ Premix) 50 mls @ 100 mls/hr IV Q24H JAZMINE Iron Sucrose 500 mg/ Sodium (Chloride) 275 mls @ 62.5 mls/hr IV ONETIME ONE Stop: 01/21/19 12:25 Sodium Chloride (Normal Saline) 1,000 mls @ 125 mls/hr IV Q8H JAZMINE Ibuprofen (Motrin) 400 mg PO Q6H PRN PRN Reason: Fever Last Admin: 01/21/19 03:56 Dose: 400 mg Influenza Virus Vaccine (Fluzone Quad [id number] Syringe) 60 mcg IM .ONCE ONE Stop: 01/21/19 10:01 Morphine Sulfate (Morphine) 2 mg IVPUSH Q4H PRN PRN Reason: Pain (severe 7-10) Stop: 01/21/19 23:23 Ondansetron HCl (Zofran) 4 mg IVPUSH Q4H PRN PRN Reason: Nausea/Vomiting Sodium Chloride (Saline Flush) 10 ml FLUSH ASDIRECTED PRN PRN Reason: Keep Vein Open Last Admin: 01/20/19 21:39 Dose: 10 ml Sodium Chloride (Saline Flush) 2.5 ml FLUSH ASDIRECTED PRN PRN Reason: Keep Vein Open Last Admin: 01/20/19 21:40 Dose: 2.5 ml Assessment/Plan Comment:: This 28 year old female admitted with sepsis secondary to pyelonephritis and chronic anemia. 1. Sepsis: lactic acid normalized with IV fluid resuscitation. No hypotension. Will continue to follow cultures 2. Pyelonephritis: Flank pain improved, mild increase in leukocytosis. Dysuria better as well. Will increase Rocephin to 2 gm IV daily, give this morning. UC and BC pending. Will monitor 3. Anemia: Chronic, no recent bleeding. IUD remains in place, no period x 2 months per her reports. HCG negative. Non-compliant with Iron supplementation as outpatient. Iron 18 and TIBC 475, will give IV Iron sucrose today, 500 mg. 4. Transaminititis: Obtain RUQ US today as well as hepatitis panel. VTE prophylaxis: SCDs and ambulation Dispo: 1-2 days - Mortality Measure Prognosis:: Good
[2019-01-21] MEDS ORDERED: cefTRIAXone 1 GM in Premix Bag 1 BAG IV SCH (09:00)
[2019-01-21] MEDS ORDERED: cefTRIAXone 2 GM in Premix Bag 1 BAG IV SCH (09:00)
[2019-01-21] MEDS: Sodium Chloride 0.9% 1,000 ML IV SCH ×4 (09:01→22:12)
[2019-01-21] MEDS ORDERED: FLU Vacc QS2019-20(6MOS+)/PF 60 MCG/0.5 ML SYRINGE IM ONE (10:00)
--- NOTE | 2019-01-21 14:42 | US ---
Limited abdominal ultrasound: Multiple real-time images of the upper right abdomen were obtained. Comparison: No prior abdominal ultrasound, prior CT abdomen and pelvis exam of 01/04/18. Visualized pancreas shows no discrete abnormality. Gallbladder is filled with gallstones with no gallbladder wall thickening or biliary duct dilatation. Liver is slightly hyperechoic in relation to the right kidney raising the possibility fatty infiltration. Right kidney shows no hydronephrosis or mass. Right kidney has a length of 12.2 cm. Impression: 1. Possible fatty infiltration within the liver. 2. Gallbladder is filled with gallstones without gallbladder wall thickening or biliary duct dilatation. 3. No additional abnormality is seen on right upper quadrant abdominal ultrasound. Diagnostic code #3 This report was dictated in [place] Standard Time
[2019-01-21] MEDS: Piperacillin/Tazobactam 3.375 GM in Sodium Chloride 0.9% 50 ML IV SCH (20:56)
[2019-01-21] MEDS ORDERED: traZODone 50 MG Tab PO ONE (22:03)
[2019-01-22] MEDS: Sodium Chloride 0.9% 1,000 ML IV SCH ×2 (02:08→07:25)
[2019-01-22] MEDS: Piperacillin/Tazobactam 3.375 GM in Sodium Chloride 0.9% 50 ML IV SCH ×3 (05:12→21:20)
[2019-01-22 06:47] LABS: BLOOD UREA NITROGEN,BUN 4 mg/dL (7.0-18.0); CARBON DIOXIDE,CO2 18.9 mmol/L (21.0-32.0); CHLORIDE,CL 107 mmol/L (98-107); GLUCOSE RANDOM 107 mg/dL (74-106); POTASSIUM,K 3.8 mmol/L (3.5-5.1); SODIUM,NA 138 mmol/L (136-145)
--- NOTE | 2019-01-22 08:20 | PCM.PN ---
- General Info Date of Service: 01/22/19 Admission Dx/Problem (Free Text): Admission Diagnosis/Problem Admission Diagnosis/Problem Pyelonephritis, bacteremia Subjective Update: Doing better this morning, no chest pain or palpitations. Back pain contnues to improve. No black or bloody BMs. Urinating well. No diarrhea. Tolerating diet Functional Status: Reports: Pain Controlled, Tolerating Diet, Ambulating, Urinating - Review of Systems General: Reports: No Symptoms HEENT: Reports: No Symptoms. Denies: Headaches Pulmonary: Reports: No Symptoms. Denies: Shortness of Breath Cardiovascular: Reports: No Symptoms. Denies: Chest Pain Gastrointestinal: Reports: No Symptoms. Denies: Abdominal Pain, Nausea, Vomiting Genitourinary: Reports: Flank Pain (much improved from admission) Musculoskeletal: Reports: No Symptoms Skin: Reports: No Symptoms Neurological: Reports: No Symptoms Psychiatric: Reports: No Symptoms - Patient Data Vitals - Most Recent: Last Vital Signs Temp 98.7 F 01/22/19 07:44 Pulse 86 01/22/19 07:44 Resp 14 01/22/19 07:44 BP 123/70 01/22/19 07:44 Pulse Ox 96 01/22/19 07:44 Weight - Most Recent: 71.7 kg I&O - Last 24 Hours: Intake & Output 01/21/19 01/22/19 01/22/19 22:59 06:59 14:59 Intake Total 560 600 Output Total 2000 1400 Balance -1440 -800 Lab Results Last 24 Hours: Laboratory Results - last 24 hr 01/21/19 01/22/19 01/22/19 Range/Units 04:40 05:55 05:55 WBC 9.81 (4.0-11.0) K/uL RBC 3.75 L (4.30-5.90) M/uL Hgb 6.8 L (12.0-16.0) g/dL Hct 25.6 L (36.0-46.0) % MCV 68.3 L (80.0-98.0) fL MCH 18.1 L (27.0-32.0) pg MCHC 26.6 L (31.0-37.0) g/dL RDW Std Deviation 56.8 (28.0-62.0) fl RDW Coeff of Aniyah 23 H (11.0-15.0) % Plt Count 189 (150-400) K/uL Add Manual Diff YES Neutrophils % (Manual) 89 H (48.0-80.0) % Lymphocytes % (Manual) 10 L (16.0-40.0) % Monocytes % (Manual) 1 (0.0-15.0) % Nucleated RBC % 1.0 /100WBC Absolute Seg Neuts 8.7 H (1.4-5.7) Lymphocytes # (Manual) 1.0 (0.6-2.4) Monocytes # (Manual) 0.1 (0.0-0.8) Nucleated RBCs # 0 K/uL Sodium 138 (136-145) mmol/L Potassium 3.8 (3.5-5.1) mmol/L Chloride 107 (98-107) mmol/L Carbon Dioxide 18.9 L (21.0-32.0) mmol/L BUN 4 L (7.0-18.0) mg/dL Creatinine 0.5 L (0.6-1.0) mg/dL Est Cr Clr Drug Dosing 147.23 mL/min Estimated GFR (MDRD) > 60.0 ml/min Glucose 107 H (74-106) mg/dL Calcium 8.0 L (8.5-10.1) mg/dL Total Bilirubin 0.7 (0.2-1.0) mg/dL AST 104 H (15-37) IU/L ALT 144 H (14-63) IU/L Alkaline Phosphatase 143 H (46-116) U/L Total Protein 6.7 (6.4-8.2) g/dL Albumin 2.7 L (3.4-5.0) g/dL Globulin 4.0 (2.6-4.0) g/dL Albumin/Globulin Ratio 0.7 L (0.9-1.6) Tx Rx Implicated Unit 1 [id number] Unit 1 Component RBC Pre-Trans Blood Type TNP Pre-Trans Vis Hemolysis NEGATIVE Pre-Trans Icterus NEGATIVE Pre-Trans CHAYITO IgG TNP Pre-Trans CHAYITO Poly TNP Post-Trans Blood Type O POSITIVE Post-Tx Visible Hemolys NEGATIVE Post-Trans Icterus NEGATIVE Post-Trans CHAYITO IgG TNP Post-Trans CHAYITO Poly NEGATIVE Reaction Interpretation NON-HEM TRANSF RX Manish Results Last 24 Hours: Microbiology 01/20/19 21:21 Urine Culture - Final Urine, Clean Catch Escherichia Coli Normal Urogenital Terri 01/20/19 22:26 Aerobic Blood Culture - Preliminary Blood - Venous - Lab Draw NO GROWTH AFTER 1 DAY Anaerobic Blood Culture - Preliminary NO GROWTH AFTER 1 DAY 01/20/19 21:34 Aerobic Blood Culture - Preliminary Blood - Venous NO GROWTH AFTER 1 DAY Anaerobic Blood Culture - Preliminary 01/21/19 16:51 Campylobacter Antigen Assay - Final Stool / Feces NEGATIVE CAMPYLOBACTER AG REFERENCE RANGE: NEGATIVE Med Orders - Current: Current Medications Albuterol/Ipratropium (Duoneb 3.0-0.5 Mg/3 Ml) 3 ml NEB Q4HRRT PRN PRN Reason: Shortness Of Breath/wheezing Sodium Chloride (Normal Saline) 1,000 mls @ 125 mls/hr IV Q8H [facility] Last Admin: 01/22/19 07:25 Dose: 125 mls/hr Piperacillin Sod/Tazobactam (Sod 3.375 gm/ Sodium Chloride) 50 mls @ 100 mls/ hr IV Q8H [facility] Last Admin: 01/22/19 05:12 Dose: 100 mls/hr Ibuprofen (Motrin) 400 mg PO Q6H PRN PRN Reason: Fever Last Admin: 01/21/19 19:05 Dose: 400 mg Ondansetron HCl (Zofran) 4 mg IVPUSH Q4H PRN PRN Reason: Nausea/Vomiting Sodium Chloride (Saline Flush) 10 ml FLUSH ASDIRECTED PRN PRN Reason: Keep Vein Open Last Admin: 01/20/19 21:39 Dose: 10 ml Sodium Chloride (Saline Flush) 2.5 ml FLUSH ASDIRECTED PRN PRN Reason: Keep Vein Open Last Admin: 01/20/19 21:40 Dose: 2.5 ml Discontinued Medications Acetaminophen (Tylenol Extra Strength) 1,000 mg PO ONETIME ONE Stop: 01/20/19 22:26 Last Admin: 01/20/19 22:31 Dose: 1,000 mg Acetaminophen (Tylenol) 650 mg PO Q4H PRN PRN Reason: Pain (Mild 1-3)/fever Sodium Chloride (Normal Saline) 1,000 mls @ 999 mls/hr IV STAT ONE Stop: 01/20/19 22:35 Last Admin: 01/20/19 21:38 Dose: 999 mls/hr Ceftriaxone Sodium/Dextrose 1 (gm/ Premix) 50 mls @ 100 mls/hr IV ONETIME ONE Stop: 01/20/19 22:14 Last Admin: 01/20/19 22:28 Dose: 100 mls/hr Sodium Chloride (Normal Saline) 1,000 mls @ 999 mls/hr IV STAT ONE Stop: 01/20/19 23:25 Last Admin: 01/20/19 22:31 Dose: 999 mls/hr Sodium Chloride (Normal Saline) 1,000 mls @ 125 mls/hr IV ASDIRECTED [facility] Last Admin: 01/21/19 05:05 Dose: 125 mls/hr Ceftriaxone Sodium/Dextrose 1 (gm/ Premix) 50 mls @ 100 mls/hr IV Q24H [facility] Iron Sucrose 500 mg/ Sodium (Chloride) 275 mls @ 62.5 mls/hr IV ONETIME ONE Stop: 01/21/19 12:25 Last Admin: 01/21/19 09:00 Dose: 62.5 mls/hr Ceftriaxone Sodium/Dextrose 2 (gm/ Premix) 50 mls @ 100 mls/hr IV Q24H [facility] Last Admin: 01/21/19 09:00 Dose: 100 mls/hr Influenza Virus Vaccine (Pharmacy To Dose - Influenza Vaccine) 1 each IM ONETIME ONE Stop: 01/20/19 23:59 Influenza Virus Vaccine (Fluzone Quad [id number] Syringe) 60 mcg IM .ONCE ONE Stop: 01/21/19 10:01 Ketorolac Tromethamine (Toradol) 30 mg IVPUSH ONETIME ONE Stop: 01/20/19 21:36 Last Admin: 01/20/19 21:44 Dose: 30 mg Morphine Sulfate (Morphine) 2 mg IVPUSH Q4H PRN PRN Reason: Pain (severe 7-10) Stop: 01/21/19 23:23 Morphine Sulfate (Morphine) 2 mg IVPUSH Q4H PRN PRN Reason: Pain (severe 7-10) Stop: 01/21/19 23:23 Ondansetron HCl (Zofran) 4 mg IVPUSH ONETIME ONE Stop: 01/20/19 21:36 Last Admin: 01/20/19 21:38 Dose: 4 mg Potassium Chloride (Klor-Con M20) 40 meq PO ONETIME ONE Stop: 01/20/19 23:36 Last Admin: 01/21/19 01:23 Dose: 40 meq Trazodone HCl (Trazodone) 50 mg PO ONETIME ONE Stop: 01/21/19 22:04 Last Admin: 01/21/19 22:11 Dose: 50 mg - Exam General: Alert, Oriented, Cooperative Lungs: Clear to Auscultation, Normal Respiratory Effort Cardiovascular: Regular Rate, Regular Rhythm GI/Abdominal Exam: Normal Bowel Sounds, Soft, Non-Tender Back Exam: CVA Tenderness (L) Extremities: Normal Inspection, Normal Range of Motion, Non-Tender, No Pedal Edema Neurological: No New Focal Deficit Psy/Mental Status: Alert, Normal Affect, Normal Mood Sepsis Event Note - Evaluation Sepsis Screening Result: No Definite Risk - Focused Exam Vital Signs: Vital Signs Temp Pulse Resp BP Pulse Ox 01/22/19 07:44 98.7 F 86 14 123/70 96 01/22/19 04:00 98.2 F 83 16 113/55 L 99 01/21/19 23:39 97.7 F 88 16 125/57 L 96 Date Exam was Performed: 01/22/19 Time Exam was Performed: 12:41 - Problem List & Annotations (1) Sepsis SNOMED Code(s): 37767379 Code(s): A41.9 - SEPSIS, UNSPECIFIED ORGANISM Status: Acute Current Visit : Yes (2) Pyelonephritis SNOMED Code(s): 30348837 Code(s): N12 - TUBULO-INTERSTITIAL NEPHRITIS, NOT SPCF ACUTE OR CHRONIC Status: Acute Current Visit: Yes (3) Menometrorrhagia SNOMED Code(s): 306768090 Code(s): N92.1 - EXCESSIVE AND FREQUENT MENSTRUATION WITH IRREGULAR CYCLE Status: Chronic Priority: High Current Visit: No (4) Chronic blood loss anemia SNOMED Code(s): 499498534 Code(s): D50.0 - IRON DEFICIENCY ANEMIA SECONDARY TO BLOOD LOSS (CHRONIC) Status: Chronic Priority: High Current Visit: No Annotation/Comment:: Profound, initial hemoglobin 3.3 g/dL (5) Non compliance w medication regimen SNOMED Code(s): 296028989 Code(s): Z91.14 - PATIENT'S OTHER NONCOMPLIANCE WITH MEDICATION REGIMEN Status: Chronic Priority: High Current Visit: No (6) Anemia SNOMED Code(s): 059955779 Code(s): D64.9 - ANEMIA, UNSPECIFIED Status: Chronic Current Visit: Yes Qualifiers: Anemia type: unspecified type Qualified Code(s): D64.9 - Anemia, unspecified (7) Gram-negative bacteremia SNOMED Code(s): 882484670802 Code(s): R78.81 - BACTEREMIA Status: Acute Current Visit: Yes - Problem List Review Problem List Initiated/Reviewed/Updated: Yes - My Orders Last 24 Hours: My Active Orders 01/21/19 08:15 Sodium Chloride 0.9% [Normal Saline] 1,000 ml IV Q8H 01/21/19 12:31 HEPATITIS PANEL (4) [REF] Urgent 01/22/19 08:06 Transfuse PRBC [Transfuse Red Blood Cells] [COMM] Urgent 01/23/19 05:11 CBC WITH AUTO DIFF [HEME] AM COMPREHENSIVE METABOLIC PN,CMP [CHEM] AM 01/24/19 05:11 CBC WITH AUTO DIFF [HEME] AM COMPREHENSIVE METABOLIC PN,CMP [CHEM] AM - Plan Plan:: This 28 year old female admitted with sepsis secondary to pyelonephritis and chronic anemia. 1. Sepsis: Resolved. Noted to have gram negative bacteremia, with 1/4 BC returning positive last evening. Repeat set obtained last night. 2. Pyelonephritis: Flank pain improved, leukocytosis resolved. Due to bacteremia , Zosyn started and Rocephin discontinued., give this morning. UC e coli. Will monitor 3. Anemia: Chronic, no recent bleeding. IUD remains in place, hgb 6.8 today. Will transfuse 1 unit 4. Transaminititis: Obtain RUQ US revealed gallstones with no gallbladder wall thickening or cholecystitis. Recommend outpatient follow up for cholecystectomy. VTE prophylaxis: SCDs and ambulation Dispo: Make inpatient today, as we need to wait for repeat cultures to return.
[2019-01-22] MEDS: Ibuprofen 400 MG Tab PO PRN (09:12)
[2019-01-23] MEDS: Piperacillin/Tazobactam 3.375 GM in Sodium Chloride 0.9% 50 ML IV SCH ×2 (05:48→13:17)
[2019-01-23 06:13] LABS: BLOOD UREA NITROGEN,BUN 4 mg/dL (7.0-18.0); CARBON DIOXIDE,CO2 23.7 mmol/L (21.0-32.0); CHLORIDE,CL 104 mmol/L (98-107); GLUCOSE RANDOM 126 mg/dL (74-106); POTASSIUM,K 3.2 mmol/L (3.5-5.1); SODIUM,NA 137 mmol/L (136-145)
[2019-01-23] MEDS ORDERED: Levofloxacin 250 MG Tab PO ONE (12:28)
--- NOTE | 2019-01-23 12:29 | PCM.DCSUM1 ---
Discharge Summary - Hospital Course Brief History: This 27 year old female with pmh oa severe anemia secondary to menorrhagia with poor compliance with follow up presented to the ED with concerns of R sided back pain and burning with urination for 1 day. She reports this is accompanied by fevers and chills. She denies history of kidney stones. No recent cough or URI symptoms. No neck pain. She denies taking anything for the pain or fevers. She reports she has not been taking her iron as prescribed due to it causing constipation. In the ED leukocytosis noted at 11,760, hgb 6.7 , hct 25.4, lactic acid 2.3, Na 135, K 3.3 Iron 18 TIBC 475, bilirubin elevated at 1.9, AST 65 and ALT 60. UA revealed +2 bacteria with positive nitrite and leukocyte esterase along with small blood. BC and UC obtained. Regarding anemia she reports she was worked up for this in [place] with EGD/colonoscopy and [facility] in September 2018 when she was transferred from our facility to [place] for hgb of 2.7. She had EGD which was normal and bleeding was thought to be from metromenorrhagia IUD was placed in [facility] this spring and remains in place. She reports she has not has a period in 2 months now. But again remains non complaint with Iron supplementation. Diagnosis: Stroke: No - Discharge Data Discharge Date: 01/23/19 Discharge Disposition: Home, Self-Care 01 Condition: Good - Referral to Home Health Primary Care Physician: PCP None - Discharge Diagnosis/Problem(s) (1) Sepsis SNOMED Code(s): 41277579 ICD Code: A41.9 - SEPSIS, UNSPECIFIED ORGANISM Status: Acute Current Visit: Yes (2) Pyelonephritis SNOMED Code(s): 02754088 ICD Code: N12 - TUBULO-INTERSTITIAL NEPHRITIS, NOT SPCF ACUTE OR CHRONIC Status: Acute Current Visit: Yes (3) Menometrorrhagia SNOMED Code(s): 499192040 ICD Code: N92.1 - EXCESSIVE AND FREQUENT MENSTRUATION WITH IRREGULAR CYCLE Status: Chronic Priority: High Current Visit: No (4) Chronic blood loss anemia SNOMED Code(s): 759939648 ICD Code: D50.0 - IRON DEFICIENCY ANEMIA SECONDARY TO BLOOD LOSS (CHRONIC) Status: Chronic Priority: High Current Visit: No Problem Details: Profound , initial hemoglobin 3.3 g/dL (5) Non compliance w medication regimen SNOMED Code(s): 132341076 ICD Code: Z91.14 - PATIENT'S OTHER NONCOMPLIANCE WITH MEDICATION REGIMEN Status: Chronic Priority: High Current Visit: No (6) Anemia SNOMED Code(s): 802481466 ICD Code: D64.9 - ANEMIA, UNSPECIFIED Status: Chronic Current Visit: Yes Qualifiers: Anemia type: unspecified type Qualified Code(s): D64.9 - Anemia, unspecified (7) Gram-negative bacteremia SNOMED Code(s): 995558299601 ICD Code: R78.81 - BACTEREMIA Status: Acute Current Visit: Yes - Patient Instructions Diet: Regular Diet as Tolerated Activity: As Tolerated, No Strenuous Activities Showering/Bathing: June Shower Notify Provider of: Fever, Increased Pain, Swelling and Redness, Drainage, Nausea and/or Vomiting - Discharge Plan *PRESCRIPTION DRUG MONITORING PROGRAM REVIEWED*: Not Applicable *COPY OF PRESCRIPTION DRUG MONITORING REPORT IN PATIENT ELIDIA: Not Applicable Prescriptions/Med Rec: levoFLOXacin [Levaquin] 750 mg PO DAILY #8 tab Home Medications: Home Meds levoFLOXacin [Levaquin] 750 mg PO DAILY #8 tab 01/23/19 [Rx] Oxygen Therapy Mode: Room Air Patient Handouts: Pyelonephritis, Adult, [id number], Anemia, Levofloxacin tablets Referrals: Bolivar Hendricks MD [Ordering Only Provider] - 01/27/19 2:00 pm - Discharge Summary/Plan Comment DC Time >30 min.: No Discharge Summary/Plan Comment: Admitting Diagnoses: Sepsis Pyelonephritis Discharge Diagnoses: Sepsis- resolved Pyelonephritis E coli bacteremia Other PMH: Anemia Hep C IUD in place for metromenorrhagia Ewing was admitted for fevers and Pyelonephritis, she was initially treated with Rocephin, fevers continued. She was fluid resuscitated. She was transfused 1 unit PRBCs on admission, had temps during transfusion, which is likely due to pyelonephritis not reaction. Hgb remained low, 6.8 and when fever free was transfused another unit and hgb increased to 8.7 today. On day 2 BC returned positive with gram negative vazquez, she was transitioned to ZOsyn. repeat BC obtained. She continued to improve. Today UC returned with Ecoli as well as blood cultures grew out same organism. She will be discharged home today with 8 more days of Levaquin. She was noted to have transaminitis, Hepatitis C was noted. She will be referred to Infectious disease for treatment. She is encouraged to continue Iron at home for chronic anemia. She is to return to the ED or clinic if concern should arise. - Patient Data Vitals - Most Recent: Last Vital Signs Temp 97.3 F 01/23/19 07:45 Pulse 73 01/23/19 07:45 Resp 17 01/23/19 07:45 BP 140/85 01/23/19 07:45 Pulse Ox 96 01/23/19 07:45 Weight - Most Recent: 71.7 kg I&O - Last 24 hours: Intake & Output 01/22/19 01/23/19 01/23/19 22:59 06:59 14:59 Intake Total 2313 850 Output Total 2200 1200 Balance 113 -350 Lab Results - Last 24 hrs: Laboratory Results - last 24 hr 01/20/19 01/21/19 01/23/19 Range/Units 22:26 12:31 05:35 WBC 8.44 (4.0-11.0) K/uL RBC 4.34 (4.30-5.90) M/uL Hgb 8.7 L (12.0-16.0) g/dL Hct 29.7 L (36.0-46.0) % MCV 68.4 L (80.0-98.0) fL MCH 20.0 L (27.0-32.0) pg MCHC 29.3 L (31.0-37.0) g/dL RDW Std Deviation 57.5 (28.0-62.0) fl RDW Coeff of Aniyah 25 H (11.0-15.0) % Plt Count 183 (150-400) K/uL MPV 10.60 (7.40-12.00) fL Neut % (Auto) 71.4 (48.0-80.0) % Lymph % (Auto) 15.5 L (16.0-40.0) % [place] % (Auto) 8.3 (0.0-15.0) % Eos % (Auto) 4.3 (0.0-7.0) % Baso % (Auto) 0.5 (0.0-1.5) % Neut # (Auto) 6.0 H (1.4-5.7) K/uL Lymph # (Auto) 1.3 (0.6-2.4) K/uL [place] # (Auto) 0.7 (0.0-0.8) K/uL Eos # (Auto) 0.4 (0.0-0.7) K/uL Baso # (Auto) 0.0 (0.0-0.1) K/uL Sodium (136-145) mmol/L Potassium (3.5-5.1) mmol/L Chloride (98-107) mmol/L Carbon Dioxide (21.0-32.0) mmol/L BUN (7.0-18.0) mg/dL Creatinine (0.6-1.0) mg/dL Est Cr Clr Drug Dosing mL/min Estimated GFR (MDRD) ml/min Glucose (74-106) mg/dL Calcium (8.5-10.1) mg/dL Total Bilirubin (0.2-1.0) mg/dL AST (15-37) IU/L ALT (14-63) IU/L Alkaline Phosphatase (46-116) U/L Total Protein (6.4-8.2) g/dL Albumin (3.4-5.0) g/dL Globulin (2.6-4.0) g/dL Albumin/Globulin Ratio (0.9-1.6) Hepatitis A IgM Ab Negative (Negative) Hep Bs Antigen Negative (Negative) Hep B Core IgM Ab Negative (Negative) Hepatitis C Antibody >11.0 H (0.0-0.9) s/co ratio Blood Type O POSITIVE Antibody Screen NEGATIVE Crossmatch See Detail 01/23/19 Range/Units 05:35 WBC (4.0-11.0) K/uL RBC (4.30-5.90) M/uL Hgb (12.0-16.0) g/dL Hct (36.0-46.0) % MCV (80.0-98.0) fL MCH (27.0-32.0) pg MCHC (31.0-37.0) g/dL RDW Std Deviation (28.0-62.0) fl RDW Coeff of Aniyah (11.0-15.0) % Plt Count (150-400) K/uL MPV (7.40-12.00) fL Neut % (Auto) (48.0-80.0) % Lymph % (Auto) (16.0-40.0) % [place] % (Auto) (0.0-15.0) % Eos % (Auto) (0.0-7.0) % Baso % (Auto) (0.0-1.5) % Neut # (Auto) (1.4-5.7) K/uL Lymph # (Auto) (0.6-2.4) K/uL [place] # (Auto) (0.0-0.8) K/uL Eos # (Auto) (0.0-0.7) K/uL Baso # (Auto) (0.0-0.1) K/uL Sodium 137 (136-145) mmol/L Potassium 3.2 L (3.5-5.1) mmol/L Chloride 104 (98-107) mmol/L Carbon Dioxide 23.7 (21.0-32.0) mmol/L BUN 4 L (7.0-18.0) mg/dL Creatinine 0.5 L (0.6-1.0) mg/dL Est Cr Clr Drug Dosing 147.23 mL/min Estimated GFR (MDRD) > 60.0 ml/min Glucose 126 H (74-106) mg/dL Calcium 8.4 L (8.5-10.1) mg/dL Total Bilirubin 1.2 H (0.2-1.0) mg/dL AST 38 H (15-37) IU/L ALT 107 H (14-63) IU/L Alkaline Phosphatase 138 H (46-116) U/L Total Protein 7.3 (6.4-8.2) g/dL Albumin 2.9 L (3.4-5.0) g/dL Globulin 4.4 H (2.6-4.0) g/dL Albumin/Globulin Ratio 0.7 L (0.9-1.6) Hepatitis A IgM Ab (Negative) Hep Bs Antigen (Negative) Hep B Core IgM Ab (Negative) Hepatitis C Antibody (0.0-0.9) s/co ratio Blood Type Antibody Screen Crossmatch CEASAR Results - Last 24 hrs: Microbiology 01/21/19 16:51 Stool Culture - Final Stool / Feces NO SALMONELLA, SHIGELLA,OR E.COLI O157 ISOLATED Campylobacter Antigen Assay - Final NEGATIVE CAMPYLOBACTER AG REFERENCE RANGE: NEGATIVE Shiga Toxin I - Final NEGATIVE FOR SHIGA TOXIN 1 REFERENCE RANGE: NEGATIVE Shiga Toxin II - Final NEGATIVE FOR SHIGA TOXIN 2 REFERENCE RANGE: NEGATIVE 01/20/19 21:34 Aerobic Blood Culture - Preliminary Blood - Venous NO GROWTH AFTER 2 DAYS Anaerobic Blood Culture - Final Escherichia Coli 01/20/19 22:26 Aerobic Blood Culture - Preliminary Blood - Venous - Lab Draw NO GROWTH AFTER 2 DAYS Anaerobic Blood Culture - Preliminary NO GROWTH AFTER 2 DAYS 01/21/19 20:09 Aerobic Blood Culture - Preliminary Blood - Venous - Lab Draw NO GROWTH AFTER 1 DAY Anaerobic Blood Culture - Preliminary NO GROWTH AFTER 1 DAY 01/21/19 20:09 Aerobic Blood Culture - Preliminary Blood - Venous NO GROWTH AFTER 1 DAY Anaerobic Blood Culture - Preliminary NO GROWTH AFTER 1 DAY 01/20/19 21:21 Urine Culture - Final Urine, Clean Catch Escherichia Coli Normal Urogenital Terri Med Orders - Current: Current Medications Albuterol/Ipratropium (Duoneb 3.0-0.5 Mg/3 Ml) 3 ml NEB Q4HRRT PRN PRN Reason: Shortness Of Breath/wheezing Piperacillin Sod/Tazobactam (Sod 3.375 gm/ Sodium Chloride) 50 mls @ 100 mls/ hr IV Q8H [facility] Last Admin: 01/23/19 05:48 Dose: 100 mls/hr Ibuprofen (Motrin) 400 mg PO Q6H PRN PRN Reason: Fever Last Admin: 01/22/19 09:12 Dose: 400 mg Levofloxacin (Levaquin) 750 mg PO ONETIME ONE Stop: 01/23/19 12:29 Ondansetron HCl (Zofran) 4 mg IVPUSH Q4H PRN PRN Reason: Nausea/Vomiting Sodium Chloride (Saline Flush) 10 ml FLUSH ASDIRECTED PRN PRN Reason: Keep Vein Open Last Admin: 01/20/19 21:39 Dose: 10 ml Sodium Chloride (Saline Flush) 2.5 ml FLUSH ASDIRECTED PRN PRN Reason: Keep Vein Open Last Admin: 01/20/19 21:40 Dose: 2.5 ml Discontinued Medications Acetaminophen (Tylenol Extra Strength) 1,000 mg PO ONETIME ONE Stop: 01/20/19 22:26 Last Admin: 01/20/19 22:31 Dose: 1,000 mg Acetaminophen (Tylenol) 650 mg PO Q4H PRN PRN Reason: Pain (Mild 1-3)/fever Sodium Chloride (Normal Saline) 1,000 mls @ 999 mls/hr IV STAT ONE Stop: 01/20/19 22:35 Last Admin: 01/20/19 21:38 Dose: 999 mls/hr Ceftriaxone Sodium/Dextrose 1 (gm/ Premix) 50 mls @ 100 mls/hr IV ONETIME ONE Stop: 01/20/19 22:14 Last Admin: 01/20/19 22:28 Dose: 100 mls/hr Sodium Chloride (Normal Saline) 1,000 mls @ 999 mls/hr IV STAT ONE Stop: 01/20/19 23:25 Last Admin: 01/20/19 22:31 Dose: 999 mls/hr Sodium Chloride (Normal Saline) 1,000 mls @ 125 mls/hr IV ASDIRECTED [facility] Last Admin: 01/21/19 05:05 Dose: 125 mls/hr Ceftriaxone Sodium/Dextrose 1 (gm/ Premix) 50 mls @ 100 mls/hr IV Q24H [facility] Iron Sucrose 500 mg/ Sodium (Chloride) 275 mls @ 62.5 mls/hr IV ONETIME ONE Stop: 01/21/19 12:25 Last Admin: 01/21/19 09:00 Dose: 62.5 mls/hr Sodium Chloride (Normal Saline) 1,000 mls @ 125 mls/hr IV Q8H [facility] Last Admin: 01/22/19 07:25 Dose: 125 mls/hr Ceftriaxone Sodium/Dextrose 2 (gm/ Premix) 50 mls @ 100 mls/hr IV Q24H [facility] Last Admin: 01/21/19 09:00 Dose: 100 mls/hr Influenza Virus Vaccine (Pharmacy To Dose - Influenza Vaccine) 1 each IM ONETIME ONE Stop: 01/20/19 23:59 Influenza Virus Vaccine (Fluzone Quad [id number] Syringe) 60 mcg IM .ONCE ONE Stop: 01/21/19 10:01 Ketorolac Tromethamine (Toradol) 30 mg IVPUSH ONETIME ONE Stop: 01/20/19 21:36 Last Admin: 01/20/19 21:44 Dose: 30 mg Morphine Sulfate (Morphine) 2 mg IVPUSH Q4H PRN PRN Reason: Pain (severe 7-10) Stop: 01/21/19 23:23 Morphine Sulfate (Morphine) 2 mg IVPUSH Q4H PRN PRN Reason: Pain (severe 7-10) Stop: 01/21/19 23:23 Ondansetron HCl (Zofran) 4 mg IVPUSH ONETIME ONE Stop: 01/20/19 21:36 Last Admin: 01/20/19 21:38 Dose: 4 mg Potassium Chloride (Klor-Con M20) 40 meq PO ONETIME ONE Stop: 01/20/19 23:36 Last Admin: 01/21/19 01:23 Dose: 40 meq Trazodone HCl (Trazodone) 50 mg PO ONETIME ONE Stop: 01/21/19 22:04 Last Admin: 01/21/19 22:11 Dose: 50 mg
== END 2019-01-23 14:20 | disposition home or self-care (01) | DRG 872 ==
LOC: MW.ED 21:14 → MW.MS 22:26 → OBSVTOIN 01-22 11:00 → MW.MS 01-22 11:26
PROVIDERS: ADMIT Student in an Organized Health Care Education/Training Program; ATTEND Student in an Organized Health Care Education/Training Program
DX: A41.51 Sepsis due to Escherichia coli [E. coli] (principal); N12 Tubulo-interstitial nephritis, not specified as acute or chronic; B19.20 Unspecified viral hepatitis C without hepatic coma; N92.1 Excessive and frequent menstruation with irregular cycle; F17.200 Nicotine dependence, unspecified, uncomplicated; D50.0 Iron deficiency anemia secondary to blood loss (chronic); R74.0 Nonspecific elevation of levels of transaminase and lactic acid dehydrogenase [LDH]; Z91.14 Patient's other noncompliance with medication regimen; Z97.5 Presence of (intrauterine) contraceptive device
CPT/HCPCS: 36415; 36430; 76705; 76705-26; 80053; 80074; 81001; 81025; 82728; 83550; 83605; 83690; 85025; 86850; 86900; 86901; 86920; 86921; 86922; 87040; 87046; 87077; 87086; 87088; 87186; 87804; 87899; A9270-GY; J0696; J1756; J1885; J2405; J2543; J7030; J7050; P9016

== ENCOUNTER 2019-06-03 18:00 | Emergency (ER) | payer SELFPAY ==
[2019-06-03] MEDS ORDERED: Sodium Chloride 0.9% 2.5 ML Syringe FLUSH PRN (18:34)
[2019-06-03] MEDS ORDERED: Sodium Chloride 0.9% 10 ML Syringe FLUSH PRN (18:34)
[2019-06-03] MEDS ORDERED: Sodium Chloride 0.9% 1,000 ML IV ONE (18:34)
--- NOTE | 2019-06-03 18:47 | EDM.PDOC ---
ED HPI GENERAL MEDICAL PROBLEM - General Chief Complaint: General Stated Complaint: ANEMIC Time Seen by Provider: 06/03/19 18:45 Source of Information: Reports: Patient History Limitations: Reports: No Limitations - History of Present Illness INITIAL COMMENTS - FREE TEXT/NARRATIVE: HISTORY AND PHYSICAL: History of present illness: Patient is a 28-year-old female presents to the ED With complaint of anemia. Patient states for the past 2 weeks she has been having lightheadedness, feeling like she is going to pass out, and shortness of breath with walking. She has history of anemia requiring transfusion. She was transferred to [facility] in September 2018 with a hcb of 2.7. 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 Bleeding thought to be due to menorrhagia. Patient had an IUD put in then. She states she has been spotting for the past couple of weeks, using 2 pads per day. She states she had some blood in her stool 2 weeks ago. Denies dark or tarry stools. States she had been taking iron supplements but stopped as they caused her to be constipated. Review of systems: As per history of present illness and below otherwise all systems reviewed and negative. Past medical history: As per history of present illness and as reviewed below otherwise noncontributory. Surgical history: As per history of present illness and as reviewed below otherwise noncontributory. Social history: No reported history of drug or alcohol abuse. Family history: As per history of present illness and as reviewed below otherwise noncontributory. Physical exam: General: Patient sitting comfortably in no acute distress. Patient is pale HEENT: Atraumatic, normocephalic, pupils reactive, conjunctival pallor, mucous membranes dry throat clear, neck supple, nontender, trachea midline. No meningeal signs. Lungs: Clear to auscultation, breath sounds equal bilaterally, chest nontender. Heart: S1S2, regular, negative for clicks, rubs, or overt murmur. Abdomen: Soft, nondistended, nontender. Negative for masses or hepatosplenomegaly. Negative for costovertebral tenderness. No rigidity, rebound , guarding. Pelvis: Stable nontender. Genitourinary: IUD in place. Moderate amount of thin vaginal discharge. No blood in rectal vault or from cervix. Rectal: Minimal stool in rectal vault. No bright red blood or melena. Hemoccult mildly positive. Extremities: Atraumatic, negative for cords or calf pain. Neurovascular unremarkable. Neuro: Awake, alert, oriented. Cranial nerves II through XII unremarkable. Cerebellum unremarkable. Motor and sensory unremarkable throughout. Exam nonfocal. Notes: Diagnostics: CBC, CMP, type & screen, EKG Therapeutics: 1L NS IV 4 units PRBC Prescriptions: none Impression: Anemia, GI bleed Plan: Discussed with Dr. Rae at [facility]. He is requesting a repeat Hgb prior to accepting patient for transfer. Repeat hgb is 2.5. Patient accepted for transfer via ground EMS. Vitals are stable. Patient received 2 units of PRBCs in ED and 2 units for enroute. Definitive disposition and diagnosis as appropriate pending reevaluation and review of above. - Related Data Allergies Allergy/AdvReac Type Severity Reaction Status Date / Time No Known Allergies Allergy Verified 06/03/19 18:33 Home Meds: Home Meds . [No Known Home Meds] 06/03/19 [History] Past Medical History HEENT History: Reports: None Cardiovascular History: Reports: None Respiratory History: Reports: None Gastrointestinal History: Reports: None Genitourinary History: Reports: None, Other (See Below) Other Genitourinary History: current pyelonephritis NEEDLE SETTER History: Reports: Other NEEDLE SETTER History: emergency c section on 2nd Musculoskeletal History: Reports: None Neurological History: Reports: None Psychiatric History: Reports: None Endocrine/Metabolic History: Reports: None Hematologic History: Reports: Anemia, Iron Deficiency Other Hematologic History: anemia 2nd to miscarriage Immunologic History: Reports: None Oncologic (Cancer) History: Reports: None Dermatologic History: Reports: None - Infectious Disease History Infectious Disease History: Reports: None - Past Surgical History Head Surgeries/Procedures: Reports: None Cardiovascular Surgical History: Reports: None Respiratory Surgical History: Reports: None GI Surgical History: Reports: None Female Surgical History: Reports: Section Neurological Surgical History: Reports: None Musculoskeletal Surgical History: Reports: None Dermatological Surgical History: Reports: None Social & Family History - Family History Family Medical History: Noncontributory - Tobacco Use Smoking Status *Q: Current Every Day Smoker Years of Tobacco use: 10 Packs/Tins Daily: 1 - Caffeine Use Caffeine Use: Reports: None - Alcohol Use Days Per Week of Alcohol Use: 4 Number of Drinks Per Day: 3 Total Drinks Per Week: 12 - Recreational Drug Use Recreational Drug Use: No - Living Situation & Occupation Living situation: Reports: Single, with Family Occupation: Unemployed ED ROS GENERAL - Review of Systems Review Of Systems: Comprehensive ROS is negative, except as noted in HPI. ED EXAM, GENERAL - Physical Exam Exam: See Below (see dictation) Course - Vital Signs Last Recorded V/S: Last Vital Signs Temp 96.9 F 06/03/19 18:28 Pulse 117 H 06/03/19 18:28 Resp 16 06/03/19 18:28 BP 99/40 L 06/03/19 18:28 Pulse Ox 98 06/03/19 18:28 - Orders/Labs/Meds Orders: Active Orders 24 hr Category Date Time Status EKG Documentation Completion [RC] STAT Care 06/03/19 18:34 Active PACKED CELLS [RED BLOOD CELLS LP] [BBK] Stat Lab 06/03/19 18:57 Received TYPE AND SCREEN [BBK] Stat Lab 06/03/19 18:57 Received Sodium Chloride 0.9% [Saline Flush] Med 06/03/19 18:34 Active 10 ml FLUSH ASDIRECTED PRN Sodium Chloride 0.9% [Saline Flush] Med 06/03/19 18:34 Active 2.5 ml FLUSH ASDIRECTED PRN Saline Lock Insert [OM.PC] Stat Oth 06/03/19 18:34 Ordered Transfuse PRBC [Transfuse Red Blood Cells] [COMM] Stat Oth 06/03/19 20:35 Ordered Medication Orders Sodium Chloride (Saline Flush) 10 ml FLUSH ASDIRECTED PRN PRN Reason: Keep Vein Open Sodium Chloride (Saline Flush) 2.5 ml FLUSH ASDIRECTED PRN PRN Reason: Keep Vein Open Labs: Laboratory Tests 06/03/19 06/03/19 06/03/19 Range/Units 17:51 18:57 18:57 WBC 6.20 (4.0-11.0) K/uL RBC 1.55 L (4.30-5.90) M/uL Hgb 2.6 L* (12.0-16.0) g/dL Hct 10.4 L (36.0-46.0) % MCV 67.1 L (80.0-98.0) fL MCH 16.8 L (27.0-32.0) pg MCHC 25.0 L (31.0-37.0) g/dL RDW Std Deviation 48.7 (28.0-62.0) fl RDW Coeff of Aniyah 20 H (11.0-15.0) % Plt Count 376 (150-400) K/uL MPV 9.10 (7.40-12.00) fL Add Manual Diff YES Neutrophils % (Manual) 80 (48.0-80.0) % Lymphocytes % (Manual) 12 L (16.0-40.0) % Monocytes % (Manual) 4 (0.0-15.0) % Eosinophils % (Manual) 3 (0.0-7.0) % Basophils % (Manual) 1 (0.0-1.5) % Nucleated RBC % 1.7 /100WBC Absolute Seg Neuts 5.0 (1.4-5.7) Lymphocytes # (Manual) 0.7 (0.6-2.4) Monocytes # (Manual) 0.2 (0.0-0.8) Eosinophils # (Manual) 0.2 (0.0-0.7) Basophils # (Manual) 0.1 (0.0-0.1) Nucleated RBCs 5 % Nucleated RBCs # 0 K/uL Sodium 133 L (136-145) mmol/L Potassium 3.7 (3.5-5.1) mmol/L Chloride 99 (98-107) mmol/L Carbon Dioxide 24.1 (21.0-32.0) mmol/L BUN 10 (7.0-18.0) mg/dL Creatinine 0.8 (0.6-1.0) mg/dL Est Cr Clr Drug Dosing 92.02 mL/min Estimated GFR (MDRD) > 60.0 ml/min Glucose 126 H (74-106) mg/dL Calcium 8.1 L (8.5-10.1) mg/dL Total Bilirubin 1.7 H (0.2-1.0) mg/dL AST 45 H (15-37) IU/L ALT 57 (14-63) IU/L Alkaline Phosphatase 114 (46-116) U/L Total Protein 7.4 (6.4-8.2) g/dL Albumin 3.5 (3.4-5.0) g/dL Globulin 3.9 (2.6-4.0) g/dL Albumin/Globulin Ratio 0.9 (0.9-1.6) Blood Type O POSITIVE Antibody Screen NEGATIVE Crossmatch See Detail 06/03/19 Range/Units 19:56 WBC (4.0-11.0) K/uL RBC (4.30-5.90) M/uL Hgb 2.5 L* (12.0-16.0) g/dL Hct 10.1 L (36.0-46.0) % MCV (80.0-98.0) fL MCH (27.0-32.0) pg MCHC (31.0-37.0) g/dL RDW Std Deviation (28.0-62.0) fl RDW Coeff of Aniyah (11.0-15.0) % Plt Count (150-400) K/uL MPV (7.40-12.00) fL Add Manual Diff Neutrophils % (Manual) (48.0-80.0) % Lymphocytes % (Manual) (16.0-40.0) % Monocytes % (Manual) (0.0-15.0) % Eosinophils % (Manual) (0.0-7.0) % Basophils % (Manual) (0.0-1.5) % Nucleated RBC % /100WBC Absolute Seg Neuts (1.4-5.7) Lymphocytes # (Manual) (0.6-2.4) Monocytes # (Manual) (0.0-0.8) Eosinophils # (Manual) (0.0-0.7) Basophils # (Manual) (0.0-0.1) Nucleated RBCs % Nucleated RBCs # K/uL Sodium (136-145) mmol/L Potassium (3.5-5.1) mmol/L Chloride (98-107) mmol/L Carbon Dioxide (21.0-32.0) mmol/L BUN (7.0-18.0) mg/dL Creatinine (0.6-1.0) mg/dL Est Cr Clr Drug Dosing mL/min Estimated GFR (MDRD) ml/min Glucose (74-106) mg/dL Calcium (8.5-10.1) mg/dL Total Bilirubin (0.2-1.0) mg/dL AST (15-37) IU/L ALT (14-63) IU/L Alkaline Phosphatase (46-116) U/L Total Protein (6.4-8.2) g/dL Albumin (3.4-5.0) g/dL Globulin (2.6-4.0) g/dL Albumin/Globulin Ratio (0.9-1.6) Blood Type Antibody Screen Crossmatch Meds: Medications Generic Name Dose Route Start Last Admin Trade Name Freq PRN Reason Stop Dose Admin Sodium Chloride 10 ml 06/03/19 18:34 Saline Flush FLUSH ASDIRECTED PRN Keep Vein Open Sodium Chloride 2.5 ml 06/03/19 18:34 Saline Flush FLUSH ASDIRECTED PRN Keep Vein Open Discontinued Medications Generic Name Dose Route Start Last Admin Trade Name Freq PRN Reason Stop Dose Admin Sodium Chloride 1,000 mls @ 999 mls/hr 06/03/19 18:34 06/03/19 19:03 Normal Saline IV 06/03/19 19:34 999 mls/hr STAT ONE Administration Departure - Departure Time of Disposition: 21:20 Disposition: DC/Tfer to Acute Hospital 02 Condition: Fair Clinical Impression: Anemia Qualifiers: Anemia type: unspecified type Qualified Code(s): D64.9 - Anemia, unspecified GI bleed Qualifiers: GI bleed type/associated pathology: anorectal hemorrhage Qualified Code(s): K62.5 - Hemorrhage of anus and rectum - Discharge Information Referrals: PCP,None [Primary Care Provider] - Forms: ED Department Discharge Sepsis Event Note - Evaluation Sepsis Screening Result: No Definite Risk - Focused Exam Vital Signs: Vital Signs Temp Pulse Resp BP Pulse Ox 06/03/19 18:28 96.9 F 117 H 16 99/40 L 98 Date Exam was Performed: 06/03/19 Time Exam was Performed: 21:23 - My Orders Last 24 Hours: My Active Orders 06/03/19 18:34 EKG Documentation Completion [RC] STAT Sodium Chloride 0.9% [Saline Flush] 10 ml FLUSH ASDIRECTED PRN Sodium Chloride 0.9% [Saline Flush] 2.5 ml FLUSH ASDIRECTED PRN Saline Lock Insert [OM.PC] Stat 06/03/19 18:57 PACKED CELLS [RED BLOOD CELLS LP] [BBK] Stat TYPE AND SCREEN [BBK] Stat 06/03/19 20:35 Transfuse PRBC [Transfuse Red Blood Cells] [COMM] Stat - Assessment/Plan Last 24 Hours: My Active Orders 06/03/19 18:34 EKG Documentation Completion [RC] STAT Sodium Chloride 0.9% [Saline Flush] 10 ml FLUSH ASDIRECTED PRN Sodium Chloride 0.9% [Saline Flush] 2.5 ml FLUSH ASDIRECTED PRN Saline Lock Insert [OM.PC] Stat 06/03/19 18:57 PACKED CELLS [RED BLOOD CELLS LP] [BBK] Stat TYPE AND SCREEN [BBK] Stat 06/03/19 20:35 Transfuse PRBC [Transfuse Red Blood Cells] [COMM] Stat
[2019-06-03 19:28] LABS: BLOOD UREA NITROGEN,BUN 10 mg/dL (7.0-18.0); CARBON DIOXIDE,CO2 24.1 mmol/L (21.0-32.0); CHLORIDE,CL 99 mmol/L (98-107); GLUCOSE RANDOM 126 mg/dL (74-106); POTASSIUM,K 3.7 mmol/L (3.5-5.1); SODIUM,NA 133 mmol/L (136-145)
== END 2019-06-03 22:01 ==
LOC: MW.ED 18:00
DX: K62.5 Hemorrhage of anus and rectum (principal); D64.9 Anemia, unspecified; F17.210 Nicotine dependence, cigarettes, uncomplicated
CPT/HCPCS: 36415; 36430; 80053; 85014; 85018; 85025; 86850; 86900; 86901; 86920; 86921; 86922; 93005; 96360; 96361; 99285; J7030; P9016; 99283

== ENCOUNTER 2022-04-18 18:03 | Inpatient (IN) | payer MEDICAID ==
[2022-04-18] MEDS ORDERED: Sodium Chloride 0.9% 10 ML Syringe FLUSH PRN ×2 (18:26→19:59)
[2022-04-18] MEDS ORDERED: Sodium Chloride 0.9% 2.5 ML Syringe FLUSH PRN ×2 (18:26→19:59)
[2022-04-18] MEDS ORDERED: Sodium Chloride 0.9% 1,000 ML IV ONE (19:59)
[2022-04-18 20:03] LABS: CARBON DIOXIDE,CO2 23.4 mmol/L (21.0-32.0); POTASSIUM,K 3.6 mmol/L (3.5-5.1)
[2022-04-18] MEDS ORDERED: cefTRIAXone 1 GM in Sodium Chloride 0.9% 50 ML IV ONE (20:37)
[2022-04-18 20:56] LABS: CORONAVIRUS COVID-19 NAA NEGATIVE (NEGATIVE); INFLUENZA A NAA NEGATIVE (NEGATIVE); INFLUENZA B NAA NEGATIVE (NEGATIVE)
[2022-04-19] MEDS ORDERED: LORazepam 2 MG/ML SDV IM PRN (00:50)
[2022-04-19] MEDS ORDERED: Acetaminophen 325 MG Tab PO PRN (00:50)
[2022-04-19 07:03] LABS: HEMOGLOBIN A1C 5.3 %
[2022-04-19 07:10] LABS: BLOOD UREA NITROGEN,BUN 3 mg/dL (7.0-18.0); CARBON DIOXIDE,CO2 22.5 mmol/L (21.0-32.0); CHLORIDE,CL 106 mmol/L (98-107); GLUCOSE RANDOM 96 mg/dL (74-106); POTASSIUM,K 3.5 mmol/L (3.5-5.1); SODIUM,NA 139 mmol/L (136-145)
[2022-04-19 07:13] LABS: ESTIMATED GFR 137 mL/min (>60)
[2022-04-19] MEDS ORDERED: Sodium Ferric Gluconate Cmplex 250 MG in Sodium Chloride 0.9% 100 ML IV ONE (07:57)
[2022-04-19] MEDS ORDERED: Sodium Chloride 0.9% 2.5 ML Syringe FLUSH PRN (14:50)
[2022-04-19] MEDS ORDERED: Sodium Chloride 0.9% 10 ML Syringe FLUSH PRN (14:50)
[2022-04-20] MEDS ORDERED: Sodium Ferric Gluconate Cmplex 250 MG in Sodium Chloride 0.9% 100 ML IV ONE (07:26)
[2022-04-20 07:32] LABS: CARBON DIOXIDE,CO2 22.9 mmol/L (21.0-32.0); POTASSIUM,K 3.5 mmol/L (3.5-5.1)
== END 2022-04-20 12:55 | disposition home or self-care (01) | DRG 812 ==
LOC: MW.ED 18:03 → MW.MS 20:33
PROVIDERS: ADMIT Pediatrics; ATTEND Pediatrics
DX: D50.9 Iron deficiency anemia, unspecified (principal); F17.210 Nicotine dependence, cigarettes, uncomplicated; R00.0 Tachycardia, unspecified; Z20.822 Contact with and (suspected) exposure to COVID-19; Z98.890 Other specified postprocedural states; Z83.2 Family history of diseases of the blood and blood-forming organs and certain disorders involving the immune mechanism; Z87.42 Personal history of other diseases of the female genital tract; Z56.0 Unemployment, unspecified
CPT/HCPCS: 0240U; 36415; 36430; 80048; 80053; 81001; 81025; 82248; 82525; 82728; 83010; 83036; 83550; 83655; 83735; 84443; 84630; 85025; 85045; 85610; 85652; 85730; 86038; 86140; 86850; 86880; 86900; 86901; 86920; 87086; 93005; 96361; 96374; 99221; 99238; 99285-25; A9270-GY; J0696; J2916; J3490; J7030; J7050; P9016

== ENCOUNTER 2022-09-19 19:51 | Emergency (ER) | payer MEDICAID ==
[2022-09-19] MEDS ORDERED: oxyCODONE 5 MG Tab PO ONE (20:07)
== END 2022-09-19 20:28 | disposition home or self-care (01) ==
LOC: MW.ED 19:51
DX: K04.7 Periapical abscess without sinus (principal); F17.210 Nicotine dependence, cigarettes, uncomplicated
CPT/HCPCS: 99282; A9270; 99283

== ENCOUNTER 2023-07-02 20:00 | Inpatient (IN) | payer MEDICAID ==
[2023-07-02 21:50] LABS: INR 1.02 (0.86-1.11); PTT,PARTIAL THROMBOPLSTIN TIME 24.9 SEC (23.9-30.7)
[2023-07-02 22:05] LABS: HEMATOCRIT 10.7 % (37.0-47.0); MEAN CORPUSCULAR HEMOGLOBIN 16.7 pg (28.0-32.0); MEAN CORPUSCULAR HGB CONC 24.3 g/dL (32.0-36.0); MEAN CORPUSCULAR VOLUME 68.6 fL (83.0-99.0); MEAN PLATELET VOLUME 9.3 fL (9.4-12.3); NRBC ABSOLUTE 0.05 K/uL (0.00-0.02); PLATELET COUNT,PLT 340 K/uL (150-400); RED BLOOD CELL COUNT 1.56 M/uL (4.10-5.30); WHITE BLOOD CELL COUNT,WBC 4.94 K/uL (3.9-11.3)
[2023-07-02 22:18] LABS: HEMOGLOBIN 2.6 g/dL (12.0-16.0)
[2023-07-02 22:20] LABS: A/G RATIO 0.7 (0.9-1.6); ALBUMIN 3.3 g/dL (3.4-5.0); BILIRUBIN TOTAL 1.1 mg/dL (0.2-1.0); CALCIUM 7.9 mg/dL (8.5-10.1); CARBON DIOXIDE,CO2 25.5 mmol/L (21.0-32.0); CREATININE 0.6 mg/dL (0.6-1.0); EST CRCL DRUG DOSING (CG) 118.39 mL/min; MAGNESIUM 1.9 mg/dL (1.8-2.4); POTASSIUM,K 3.2 mmol/L (3.5-5.1); PROTEIN TOTAL,TP 8.2 g/dL (6.4-8.2)
[2023-07-02 22:24] LABS: PERCENT FE SATURATION 2.07 % (20-55)
[2023-07-02 22:27] LABS: LYMPHOCYTES ABSOLUTE MAN 0.99 K/uL (1.00-4.80); LYMPHOCYTES PERCENT MAN 20 % (24-44); MONOCYTES ABSOLUTE MAN 0.25 K/uL (0.00-0.80); MONOCYTES PERCENT MAN 5 % (0-8)
[2023-07-02 22:28] LABS: EOSINOPHILS PERCENT MAN 2 % (0-6); SEG NEUTROPHILS ABSOLUTE MAN 3.61 K/uL (1.80-7.70); SEG NEUTROPHILS PERCENT MAN 73 % (41-71)
[2023-07-03] MEDS: Potassium Chloride 20 MEQ Tab.ER PO ONE ×2 (01:18→11:56)
[2023-07-03] MEDS ORDERED: Acetaminophen 325 MG Tab PO PRN (01:46)
[2023-07-03 06:58] LABS: BASOPHILS ABSOLUTE AUTO 0.02 K/uL (0.00-0.20); BASOPHILS PERCENT AUTO 0.3 % (0.0-1.0); EOSINOPHILS ABSOLUTE AUTO 0.16 K/uL (0.00-0.45); EOSINOPHILS PERCENT AUTO 2.7 % (0.0-6.0); HEMOGLOBIN 5.2 g/dL (12.0-16.0); IMMATURE GRAN ABSOLUTE AUTO 0.03 K/uL (0.00-0.05); IMMATURE GRAN PERCENT AUTO 0.5 % (0.0-0.4); LYMPHOCYTES ABSOLUTE AUTO 0.97 K/uL (1.00-4.80); LYMPHOCYTES PERCENT AUTO 16.6 % (24.0-44.0); MEAN CORPUSCULAR HEMOGLOBIN 21.5 pg (28.0-32.0); MEAN CORPUSCULAR HGB CONC 28.9 g/dL (32.0-36.0); MEAN CORPUSCULAR VOLUME 74.4 fL (83.0-99.0); MEAN PLATELET VOLUME 9.3 fL (9.4-12.3); MONOCYTES ABSOLUTE AUTO 0.31 K/uL (0.00-0.80); MONOCYTES PERCENT AUTO 5.3 % (0.0-8.0); NEUTROPHILS ABSOLUTE AUTO 4.36 K/uL (1.80-7.70); NEUTROPHILS PERCENT AUTO 74.6 % (41.0-71.0); NRBC ABSOLUTE 0.04 K/uL (0.00-0.02); NRBC PERCENT 0.7 /100WBC (0.0-0.2); PLATELET COUNT,PLT 326 K/uL (150-400); RED BLOOD CELL COUNT 2.42 M/uL (4.10-5.30); WHITE BLOOD CELL COUNT,WBC 5.85 K/uL (3.9-11.3)
[2023-07-03 07:36] LABS: CREATININE 0.6 mg/dL (0.6-1.0); EST CRCL DRUG DOSING (CG) 118.39 mL/min; POTASSIUM,K 3.3 mmol/L (3.5-5.1)
[2023-07-03] MEDS ORDERED: Sennosides/Docusate Sodium 50-8.6 MG Tab PO PRN (11:21)
[2023-07-03] MEDS ORDERED: Ondansetron 4 MG/2 ML SDV IVPUSH PRN (11:21)
[2023-07-03 18:20] LABS: HEMATOCRIT 26.4 % (37.0-47.0); HEMOGLOBIN 8.2 g/dL (12.0-16.0)
[2023-07-04 06:18] LABS: BASOPHILS ABSOLUTE AUTO 0.03 K/uL (0.00-0.20); BASOPHILS PERCENT AUTO 0.5 % (0.0-1.0); HEMATOCRIT 25.9 % (37.0-47.0); HEMOGLOBIN 7.8 g/dL (12.0-16.0); IMMATURE GRAN ABSOLUTE AUTO 0.04 K/uL (0.00-0.05); IMMATURE GRAN PERCENT AUTO 0.6 % (0.0-0.4); LYMPHOCYTES ABSOLUTE AUTO 1.48 K/uL (1.00-4.80); LYMPHOCYTES PERCENT AUTO 22.5 % (24.0-44.0); MEAN CORPUSCULAR HEMOGLOBIN 23.4 pg (28.0-32.0); MEAN CORPUSCULAR HGB CONC 30.1 g/dL (32.0-36.0); MEAN CORPUSCULAR VOLUME 77.8 fL (83.0-99.0); MEAN PLATELET VOLUME 9.6 fL (9.4-12.3); MONOCYTES ABSOLUTE AUTO 0.32 K/uL (0.00-0.80); MONOCYTES PERCENT AUTO 4.9 % (0.0-8.0); NEUTROPHILS PERCENT AUTO 68.5 % (41.0-71.0); NRBC ABSOLUTE 0.07 K/uL (0.00-0.02); NRBC PERCENT 1.1 /100WBC (0.0-0.2); PLATELET COUNT,PLT 319 K/uL (150-400); RED BLOOD CELL COUNT 3.33 M/uL (4.10-5.30); WHITE BLOOD CELL COUNT,WBC 6.57 K/uL (3.9-11.3)
[2023-07-04 07:01] LABS: A/G RATIO 0.6 (0.9-1.6); ALBUMIN 3.2 g/dL (3.4-5.0); BILIRUBIN TOTAL 2.9 mg/dL (0.2-1.0); CALCIUM 8.3 mg/dL (8.5-10.1); CARBON DIOXIDE,CO2 22.9 mmol/L (21.0-32.0); CREATININE 0.7 mg/dL (0.6-1.0); EST CRCL DRUG DOSING (CG) 101.48 mL/min; POTASSIUM,K 3.5 mmol/L (3.5-5.1); PROTEIN TOTAL,TP 8.5 g/dL (6.4-8.2)
[2023-07-04] MEDS: Iopamidol 755 MG/ML 500 ML Multipack Bottle IVPUSH ONE (20:20)
[2023-07-04 20:48] LABS: HEMATOCRIT 29.3 % (37.0-47.0); HEMOGLOBIN 9.1 g/dL (12.0-16.0)
[2023-07-05 06:56] LABS: BASOPHILS ABSOLUTE AUTO 0.04 K/uL (0.00-0.20); BASOPHILS PERCENT AUTO 0.5 % (0.0-1.0); EOSINOPHILS PERCENT AUTO 2.5 % (0.0-6.0); HEMATOCRIT 31.1 % (37.0-47.0); HEMOGLOBIN 9.8 g/dL (12.0-16.0); IMMATURE GRAN ABSOLUTE AUTO 0.04 K/uL (0.00-0.05); IMMATURE GRAN PERCENT AUTO 0.5 % (0.0-0.4); LYMPHOCYTES ABSOLUTE AUTO 1.61 K/uL (1.00-4.80); LYMPHOCYTES PERCENT AUTO 20.5 % (24.0-44.0); MEAN CORPUSCULAR HEMOGLOBIN 24.4 pg (28.0-32.0); MEAN CORPUSCULAR HGB CONC 31.5 g/dL (32.0-36.0); MEAN CORPUSCULAR VOLUME 77.6 fL (83.0-99.0); MEAN PLATELET VOLUME 9.5 fL (9.4-12.3); MONOCYTES ABSOLUTE AUTO 0.38 K/uL (0.00-0.80); MONOCYTES PERCENT AUTO 4.8 % (0.0-8.0); NEUTROPHILS PERCENT AUTO 71.2 % (41.0-71.0); NRBC ABSOLUTE 0.06 K/uL (0.00-0.02); NRBC PERCENT 0.8 /100WBC (0.0-0.2); PLATELET COUNT,PLT 332 K/uL (150-400); RED BLOOD CELL COUNT 4.01 M/uL (4.10-5.30); WHITE BLOOD CELL COUNT,WBC 7.87 K/uL (3.9-11.3)
[2023-07-05 07:28] LABS: A/G RATIO 0.6 (0.9-1.6); ALBUMIN 3.3 g/dL (3.4-5.0); BILIRUBIN TOTAL 2.3 mg/dL (0.2-1.0); CALCIUM 8.5 mg/dL (8.5-10.1); CARBON DIOXIDE,CO2 21.7 mmol/L (21.0-32.0); CREATININE 0.6 mg/dL (0.6-1.0); EST CRCL DRUG DOSING (CG) 118.39 mL/min; PROTEIN TOTAL,TP 8.7 g/dL (6.4-8.2)
[2023-07-05] MEDS ORDERED: Potassium Chloride 20 MEQ Tab.ER PO ONE (08:00)
[2023-07-05] MEDS: Potassium Chloride 20 MEQ Tab.ER PO ONE (10:36)
== END 2023-07-05 19:45 | disposition home or self-care (01) | DRG 812 ==
LOC: MW.ED 20:00 → MW.MS 23:05
PROVIDERS: ADMIT Internal Medicine; ATTEND Internal Medicine
PROC: 30233N1 Transfusion of Nonautologous Red Blood Cells into Peripheral Vein, Percutaneous Approach (ICD-10-PCS; principal; 2023-07-03)
PROC: 30233N1 Transfusion of Nonautologous Red Blood Cells into Peripheral Vein, Percutaneous Approach (ICD-10-PCS; 2023-07-03)
DX: D50.9 Iron deficiency anemia, unspecified (principal); K80.20 Calculus of gallbladder without cholecystitis without obstruction; Z79.899 Other long term (current) drug therapy; Z56.0 Unemployment, unspecified
CPT/HCPCS: 36415; 36430; 74177; 74177-26; 76705; 76705-26; 76856; 76856-26; 80048; 80053; 82728; 83540; 83550; 83735; 84484; 84703; 85014; 85018; 85025; 85610; 85730; 86850; 86900; 86901; 86920; 93005; 99222; 99232; 99239; 99285; A9270-GY; P9016; Q9967

== ENCOUNTER 2023-10-22 23:03 | Emergency (ER) | payer MEDICAID ==
[2023-10-22] MEDS ORDERED: Sodium Chloride 0.9% 10 ML Syringe FLUSH PRN (23:19)
[2023-10-22] MEDS ORDERED: Sodium Chloride 0.9% 2.5 ML Syringe FLUSH PRN (23:19)
[2023-10-22 23:31] LABS: EOSINOPHILS ABSOLUTE AUTO 0.12 K/uL (0.00-0.45); EOSINOPHILS PERCENT AUTO 1.8 % (0.0-6.0); HEMATOCRIT 9.4 % (37.0-47.0); IMMATURE GRAN ABSOLUTE AUTO 0.02 K/uL (0.00-0.05); IMMATURE GRAN PERCENT AUTO 0.3 % (0.0-0.4); LYMPHOCYTES ABSOLUTE AUTO 1.64 K/uL (1.00-4.80); LYMPHOCYTES PERCENT AUTO 24.9 % (24.0-44.0); MEAN CORPUSCULAR HEMOGLOBIN 16.3 pg (28.0-32.0); MEAN CORPUSCULAR HGB CONC 24.5 g/dL (32.0-36.0); MEAN CORPUSCULAR VOLUME 66.7 fL (83.0-99.0); MEAN PLATELET VOLUME 9.6 fL (9.4-12.3); MONOCYTES PERCENT AUTO 6.1 % (0.0-8.0); NEUTROPHILS ABSOLUTE AUTO 4.41 K/uL (1.80-7.70); NEUTROPHILS PERCENT AUTO 66.9 % (41.0-71.0); NRBC ABSOLUTE 0.07 K/uL (0.00-0.02); NRBC PERCENT 1.1 /100WBC (0.0-0.2); PLATELET COUNT,PLT 426 K/uL (150-400); RED BLOOD CELL COUNT 1.41 M/uL (4.10-5.30); WHITE BLOOD CELL COUNT,WBC 6.59 K/uL (3.9-11.3)
[2023-10-22 23:40] LABS: INR 1.02 (0.86-1.11); PTT,PARTIAL THROMBOPLSTIN TIME 23.6 SEC (23.9-30.7)
[2023-10-22 23:41] LABS: HEMOGLOBIN 2.3 g/dL (12.0-16.0)
[2023-10-22 23:47] LABS: A/G RATIO 0.7 (0.9-1.6); ALBUMIN 3.2 g/dL (3.4-5.0); BILIRUBIN TOTAL 1.5 mg/dL (0.2-1.0); CALCIUM 8.2 mg/dL (8.5-10.1); CARBON DIOXIDE,CO2 23.1 mmol/L (21.0-32.0); CREATININE 0.9 mg/dL (0.6-1.0); EST CRCL DRUG DOSING (CG) 78.21 mL/min; POTASSIUM,K 3.5 mmol/L (3.5-5.1); PROTEIN TOTAL,TP 7.9 g/dL (6.4-8.2)
[2023-10-23 01:06] LABS: PERCENT FE SATURATION 3.08 % (20-55); TRANSFERRIN 340.9
[2023-10-23 07:46] LABS: HEMATOCRIT 18.8 % (37.0-47.0); HEMOGLOBIN 5.9 g/dL (12.0-16.0); MEAN CORPUSCULAR HEMOGLOBIN 24.5 pg (28.0-32.0); MEAN CORPUSCULAR HGB CONC 31.4 g/dL (32.0-36.0); MEAN PLATELET VOLUME 9.3 fL (9.4-12.3); NRBC ABSOLUTE 0.03 K/uL (0.00-0.02); NRBC PERCENT 0.4 /100WBC (0.0-0.2); PLATELET COUNT,PLT 298 K/uL (150-400); RED BLOOD CELL COUNT 2.41 M/uL (4.10-5.30); WHITE BLOOD CELL COUNT,WBC 7.46 K/uL (3.9-11.3)
[2023-10-23 10:27] LABS: TSH ULTRASENSITIVE 1.85 uIU/mL (0.36-3.74)
[2023-10-23 10:36] LABS: PERCENT FE SATURATION 64.63 % (20-55); TRANSFERRIN 320.6
[2023-10-23 10:46] LABS: IMMATURE RETIC FRACTION 14.8 %; RED BLOOD CELL COUNT 1.49 M/uL (4.10-5.30); RETICULOCYTE ABSOLUTE 0.0623 K/uL (0.02-0.11); RETICULOCYTE COUNT PERCENT 4.18 % (0.5-2.0)
[2023-10-23] MEDS: LORazepam 0.5 MG Tab PO ONE (12:19)
[2023-10-24 10:07] LABS: HYPOCHRO 3+ /hpf; MICRO 3+ /hpf; NEUTROPHILS% 66 % (41-71); OVALOCYTE 2+ /hpf
[2023-10-26 08:02] LABS: COPPER 180.7 ug/dL (80.0-155.0)
== END 2023-10-23 12:25 ==
LOC: MW.ED 23:03
DX: D64.9 Anemia, unspecified (principal)
CPT/HCPCS: 36415; 36430; 80053; 82525; 82728; 83010; 83550; 83615; 84443; 84703; 85025; 85027; 85045; 85610; 85730; 86850; 86900; 86901; 86920; 99285; A9270; P9016

== ENCOUNTER 2024-03-12 23:17 | Observation (INO) | payer MEDICAID ==
[2024-03-12 23:44] LABS: HEMATOCRIT 9.4 % (37.0-47.0); MEAN CORPUSCULAR HEMOGLOBIN 15.3 pg (28.0-32.0); MEAN CORPUSCULAR HGB CONC 23.4 g/dL (32.0-36.0); MEAN CORPUSCULAR VOLUME 65.3 fL (83.0-99.0); MEAN PLATELET VOLUME 9.9 fL (9.4-12.3); NRBC ABSOLUTE 0.05 K/uL (0.00-0.02); PLATELET COUNT,PLT 310 K/uL (150-400); RED BLOOD CELL COUNT 1.44 M/uL (4.10-5.30); WHITE BLOOD CELL COUNT,WBC 5.13 K/uL (3.9-11.3)
[2024-03-12] MEDS: Lactated Ringers 1,000 ML IV ONE (23:48)
[2024-03-12 23:51] LABS: HEMOGLOBIN 2.2 g/dL (12.0-16.0)
[2024-03-12 23:52] LABS: INR 1.04 (0.86-1.11)
[2024-03-13 00:09] LABS: A/G RATIO 0.7 (0.9-1.6); ALBUMIN 3.1 g/dL (3.4-5.0); BILIRUBIN TOTAL 1.4 mg/dL (0.2-1.0); CALCIUM 8.2 mg/dL (8.5-10.1); CARBON DIOXIDE,CO2 24.8 mmol/L (21.0-32.0); CREATININE 0.7 mg/dL (0.6-1.0); EST CRCL DRUG DOSING (CG) 100.55 mL/min; POTASSIUM,K 3.7 mmol/L (3.5-5.1); PROTEIN TOTAL,TP 7.4 g/dL (6.4-8.2)
[2024-03-13 00:19] LABS: PERCENT FE SATURATION 2.61 % (20-55)
[2024-03-13 01:16] LABS: EOSINOPHILS ABSOLUTE MAN 0.15 K/uL (0.00-0.45); EOSINOPHILS PERCENT MAN 3 % (0-6); LYMPHOCYTES ABSOLUTE MAN 1.28 K/uL (1.00-4.80); LYMPHOCYTES PERCENT MAN 25 % (24-44); MONOCYTES ABSOLUTE MAN 0.21 K/uL (0.00-0.80); MONOCYTES PERCENT MAN 4 % (0-8); SEG NEUTROPHILS ABSOLUTE MAN 3.49 K/uL (1.80-7.70); SEG NEUTROPHILS PERCENT MAN 68 % (41-71)
[2024-03-13 01:18] LABS: MICROCYTOSIS 2+ MODERATE
[2024-03-13 01:22] LABS: HYPOCHROMASIA 2+ MODERATE
[2024-03-13 01:23] LABS: ANISOCYTOSIS 2+ MODERATE
[2024-03-13 03:10] LABS: HEMATOCRIT 11.6 % (37.0-47.0); HEMOGLOBIN 3.1 g/dL (12.0-16.0)
[2024-03-13 05:11] LABS: HEMATOCRIT 13.9 % (37.0-47.0)
[2024-03-13 05:13] LABS: HEMOGLOBIN 4.2 g/dL (12.0-16.0)
[2024-03-13 07:31] LABS: HEMOGLOBIN 5.2 g/dL (12.0-16.0)
[2024-03-13] MEDS ORDERED: Acetaminophen 325 MG Tab PO PRN (08:42)
[2024-03-13] MEDS ORDERED: Ondansetron 4 MG/2 ML SDV IVPUSH PRN (08:42)
[2024-03-13] MEDS ORDERED: Sodium Chloride 0.9% 2.5 ML Syringe FLUSH PRN (08:42)
[2024-03-13] MEDS ORDERED: Sodium Chloride 0.9% 10 ML Syringe FLUSH PRN (08:42)
[2024-03-13] MEDS: Sodium Ferric Gluconate Cmplex 250 MG in Sodium Chloride 0.9% 100 ML IV SCH (10:25)
[2024-03-13 18:44] LABS: HEMATOCRIT 25.7 % (37.0-47.0); HEMOGLOBIN 8.5 g/dL (12.0-16.0)
[2024-03-14 06:24] LABS: BASOPHILS ABSOLUTE AUTO 0.03 K/uL (0.00-0.20); BASOPHILS PERCENT AUTO 0.5 % (0.0-1.0); EOSINOPHILS ABSOLUTE AUTO 0.13 K/uL (0.00-0.45); EOSINOPHILS PERCENT AUTO 2.1 % (0.0-6.0); HEMATOCRIT 27.6 % (37.0-47.0); HEMOGLOBIN 8.8 g/dL (12.0-16.0); IMMATURE GRAN ABSOLUTE AUTO 0.05 K/uL (0.00-0.05); IMMATURE GRAN PERCENT AUTO 0.8 % (0.0-0.4); LYMPHOCYTES ABSOLUTE AUTO 1.26 K/uL (1.00-4.80); LYMPHOCYTES PERCENT AUTO 20.2 % (24.0-44.0); MEAN CORPUSCULAR HEMOGLOBIN 24.8 pg (28.0-32.0); MEAN CORPUSCULAR HGB CONC 31.9 g/dL (32.0-36.0); MEAN CORPUSCULAR VOLUME 77.7 fL (83.0-99.0); MONOCYTES ABSOLUTE AUTO 0.44 K/uL (0.00-0.80); MONOCYTES PERCENT AUTO 7.1 % (0.0-8.0); NEUTROPHILS ABSOLUTE AUTO 4.32 K/uL (1.80-7.70); NEUTROPHILS PERCENT AUTO 69.3 % (41.0-71.0); NRBC ABSOLUTE 0.17 K/uL (0.00-0.02); NRBC PERCENT 2.7 /100WBC (0.0-0.2); PLATELET COUNT,PLT 276 K/uL (150-400); RED BLOOD CELL COUNT 3.55 M/uL (4.10-5.30); WHITE BLOOD CELL COUNT,WBC 6.23 K/uL (3.9-11.3)
[2024-03-14 06:56] LABS: CALCIUM 8.1 mg/dL (8.5-10.1); CARBON DIOXIDE,CO2 22.6 mmol/L (21.0-32.0); CREATININE 0.5 mg/dL (0.6-1.0); EST CRCL DRUG DOSING (CG) 140.78 mL/min; POTASSIUM,K 3.7 mmol/L (3.5-5.1)
[2024-03-14] MEDS: Sodium Ferric Gluconate Cmplex 250 MG in Sodium Chloride 0.9% 100 ML IV SCH (10:04)
== END 2024-03-14 13:20 | disposition home or self-care (01) ==
LOC: MW.ED 23:17 → MW.MS 03-13 06:28
PROVIDERS: ADMIT Family Medicine; ATTEND Family Medicine
DX: D50.9 Iron deficiency anemia, unspecified (principal); R53.1 Weakness
CPT/HCPCS: 36415; 36430; 80048; 80053; 83550; 83605; 83735; 84703; 85014; 85018; 85025; 85610; 86850; 86900; 86901; 86920; 93005; 96360; 99285; J2916; J7120; P9016; 93010; 99284

== ENCOUNTER 2024-11-05 22:26 | Observation (INO) | payer MEDICAID ==
[2024-11-05] MEDS ORDERED: Sodium Chloride 0.9% 10 ML Syringe FLUSH PRN (22:35)
[2024-11-05] MEDS ORDERED: Sodium Chloride 0.9% 2.5 ML Syringe FLUSH PRN (22:35)
[2024-11-05 22:55] LABS: BASOPHILS ABSOLUTE AUTO 0.00 K/uL (0.00-0.20); BASOPHILS PERCENT AUTO 0.0 % (0.0-1.0); EOSINOPHILS ABSOLUTE AUTO 0.08 K/uL (0.00-0.45); EOSINOPHILS PERCENT AUTO 1.8 % (0.0-6.0); IMMATURE GRAN ABSOLUTE AUTO 0.01 K/uL (0.00-0.05); IMMATURE GRAN PERCENT AUTO 0.2 % (0.0-0.4); LYMPHOCYTES ABSOLUTE AUTO 1.00 K/uL (1.00-4.80); LYMPHOCYTES PERCENT AUTO 22.5 % (24.0-44.0); MEAN PLATELET VOLUME 10.0 fL (9.4-12.3); MONOCYTES ABSOLUTE AUTO 0.37 K/uL (0.00-0.80); MONOCYTES PERCENT AUTO 8.3 % (0.0-8.0); NEUTROPHILS ABSOLUTE AUTO 2.99 K/uL (1.80-7.70); NEUTROPHILS PERCENT AUTO 67.2 % (41.0-71.0); NRBC ABSOLUTE 0.06 K/uL (0.00-0.02); NRBC PERCENT 1.3 /100WBC (0.0-0.2); PLATELET COUNT,PLT 268 K/uL (150-400); RED BLOOD CELL COUNT 1.34 M/uL (4.10-5.30); WHITE BLOOD CELL COUNT,WBC 4.45 K/uL (3.9-11.3)
[2024-11-05 23:24] LABS: A/G RATIO 0.8 (0.9-1.6); ALANINE AMINOTRANSFERASE,ALT 52.0 IU/L (14-63); ASPARTATE AMNIOTRANSFERASE,AST 65.0 IU/L (15-37); BILIRUBIN DIRECT 0.3 mg/dL (0.0-0.5); BILIRUBIN INDIRECT 1.2; BILIRUBIN TOTAL 1.5 mg/dL (0.2-1.0); CARBON DIOXIDE,CO2 20.1 mmol/L (21.0-32.0); CHLORIDE,CL 102.0 mmol/L (98-107); CREATININE 0.8 mg/dL (0.6-1.0); EST CRCL DRUG DOSING (CG) 83.51 mL/min; GLUCOSE RANDOM 122.0 mg/dL (74-106); POTASSIUM,K 3.2 mmol/L (3.5-5.1); PRO B-TYPE NATRIUR PEPT,BNPPRO 292.0 pg/mL (0-125); PROTEIN TOTAL,TP 7.0 g/dL (6.4-8.2); SODIUM,NA 139.0 mmol/L (136-145)
[2024-11-05 23:30] LABS: BLOOD UREA NITROGEN,BUN 7.0 mg/dL (7.0-18.0); IRON,FE 9.0 ug/dL (50-175); PERCENT FE SATURATION 2.2 % (20-55)
[2024-11-05 23:31] LABS: INR 0.99 (0.86-1.11)
[2024-11-05 23:34] LABS: ESTIMATED GFR 100.0 mL/min (>60)
[2024-11-06] MEDS ORDERED: Sodium Chloride 0.9% 2.5 ML Syringe FLUSH PRN (11:26)
[2024-11-06] MEDS ORDERED: Ondansetron 4 MG/2 ML SDV IVPUSH PRN (11:26)
[2024-11-06] MEDS ORDERED: Sodium Chloride 0.9% 10 ML Syringe FLUSH PRN (11:26)
[2024-11-06] MEDS: Sodium Ferric Gluconate Cmplex 250 MG in Sodium Chloride 0.9% 100 ML IV SCH (16:41)
[2024-11-07 05:58] LABS: BASOPHILS ABSOLUTE AUTO 0.03 K/uL (0.00-0.20); BASOPHILS PERCENT AUTO 0.6 % (0.0-1.0); EOSINOPHILS ABSOLUTE AUTO 0.20 K/uL (0.00-0.45); EOSINOPHILS PERCENT AUTO 4.1 % (0.0-6.0); IMMATURE GRAN ABSOLUTE AUTO 0.05 K/uL (0.00-0.05); IMMATURE GRAN PERCENT AUTO 1.0 % (0.0-0.4); LYMPHOCYTES ABSOLUTE AUTO 0.92 K/uL (1.00-4.80); LYMPHOCYTES PERCENT AUTO 18.7 % (24.0-44.0); MEAN PLATELET VOLUME 10.2 fL (9.4-12.3); MONOCYTES ABSOLUTE AUTO 0.29 K/uL (0.00-0.80); MONOCYTES PERCENT AUTO 5.9 % (0.0-8.0); NEUTROPHILS ABSOLUTE AUTO 3.44 K/uL (1.80-7.70); NEUTROPHILS PERCENT AUTO 69.7 % (41.0-71.0); NRBC ABSOLUTE 0.11 K/uL (0.00-0.02); NRBC PERCENT 2.2 /100WBC (0.0-0.2); PLATELET COUNT,PLT 191 K/uL (150-400); RED BLOOD CELL COUNT 3.13 M/uL (4.10-5.30); WHITE BLOOD CELL COUNT,WBC 4.93 K/uL (3.9-11.3)
[2024-11-07 06:20] LABS: BLOOD UREA NITROGEN,BUN 4.0 mg/dL (7.0-18.0); CARBON DIOXIDE,CO2 22.6 mmol/L (21.0-32.0); CHLORIDE,CL 107.0 mmol/L (98-107); CREATININE 0.5 mg/dL (0.6-1.0); EST CRCL DRUG DOSING (CG) 133.62 mL/min; GLUCOSE RANDOM 112.0 mg/dL (74-106); POTASSIUM,K 3.0 mmol/L (3.5-5.1); SODIUM,NA 141.0 mmol/L (136-145)
[2024-11-07 06:22] LABS: ESTIMATED GFR 128.0 mL/min (>60)
[2024-11-07] MEDS: Potassium Chloride 20 MEQ Tab.ER PO SCH (09:08)
[2024-11-11 05:03] LABS: PARVOVIRUS B19 IGG 1.26 IV (<=0.90); PARVOVIRUS B19 IGM 0.53 IV (<=0.89)
== END 2024-11-07 13:25 | disposition home or self-care (01) ==
LOC: MW.ED 22:26 → MW.MS 11-06 04:59
PROVIDERS: ADMIT Internal Medicine; ATTEND Internal Medicine
DX: D50.0 Iron deficiency anemia secondary to blood loss (chronic) (principal); F10.90 Alcohol use, unspecified, uncomplicated; I24.89 Other forms of acute ischemic heart disease; R79.89 Other specified abnormal findings of blood chemistry; F17.210 Nicotine dependence, cigarettes, uncomplicated; Z91.199 Patient's noncompliance with other medical treatment and regimen due to unspecified reason; Z79.899 Other long term (current) drug therapy
CPT/HCPCS: 36415; 36430; 80048; 80053; 80307; 82247; 82248; 83550; 83690; 83735; 83880; 84484; 85014; 85018; 85025; 85610; 86747; 86850; 86900; 86901; 86920; 87389; 93005; 99285; A9270; J2916; P9016; 93010